=== PATIENT | male | born 1950 | race Caucasian/White ===

== ENCOUNTER 2019-11-15 19:14 | Inpatient (IN) | payer MEDICARE ==
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
[2019-11-15] MEDS ORDERED: SODIUM CHLORIDE 0.9% 1,000 ML IV STA ×2 (19:53)
[2019-11-15] MEDS ORDERED: SODIUM CHLORIDE 0.9% 500 ML 500 ML IV STA (19:53)
[2019-11-15 20:15] LABS: Basophils # (A) 0.2 k/uL (0-0.2); Basophils % (A) 2 %; Eosinophils # (A) 0.1 k/uL (0-0.7); Eosinophils % (A) 2 %; HCT 49.9 % (39.0-53.0); HGB 16.9 gm/dL (13.0-17.5); Lymphocytes # (A) 2.7 k/uL (1.0-4.8); Lymphocytes % (A) 36 %; MCH 30.1 pg (25.0-35.0); MCHC 33.9 g/dL (31.0-37.0); MCV 88.8 fL (80.0-100.0); Monocytes # (A) 0.4 k/uL (0-1.0); Monocytes % (A) 5 %; Neutrophils # (A) 3.9 k/uL (1.3-7.7); Neutrophils % (A) 52 %; Platelet Count 247 k/uL (150-450); RBC 5.61 m/uL (4.30-5.90); RDW 14.8 % (11.5-15.5); WBC 7.4 k/uL (3.8-10.6)
[2019-11-15 20:23] LABS: ALT 38 U/L (4-49); AST 51 U/L (17-59); African American GFR (CKD) >90 (>60 ml/min/1.73 sqM); Albumin 4.8 g/dL (3.5-5.0); Alkaline Phosphatase 87 U/L (38-126); Anion Gap 11 mmol/L; Blood Urea Nitrogen 14 mg/dL (9-20); Calcium 9.6 mg/dL (8.4-10.2); Carbon Dioxide 24 mmol/L (22-30); Chloride 106 mmol/L (98-107); Creatine Kinase 77 U/L (55-170); Glucose 120 mg/dL (74-99); Non-African American GFR(CKD) >90 (>60 ml/min/1.73 sqM); Partial Thromboplastin Time 23.8 sec (22.0-30.0); Potassium 4.4 mmol/L (3.5-5.1); Prothrombin Time 10.9 sec (9.0-12.0); Sodium 141 mmol/L (137-145); Total Bilirubin 0.7 mg/dL (0.2-1.3); Total Protein 9.2 g/dL (6.3-8.2)
--- NOTE | 2019-11-15 20:23 | XR ---
EXAMINATION TYPE: XR chest 2V DATE OF EXAM: 11/15/2019 COMPARISON: November 24, 2017 HISTORY: Altered mental status. TECHNIQUE: 2 views FINDINGS: Heart and mediastinum are normal. Lungs are clear of infiltrate. There are old left-sided h ealed rib fractures. There is no pleural effusion. Bony thorax is intact. IMPRESSION: No active cardiopulmonary disease. Normal heart. No change.
--- NOTE | 2019-11-15 21:24 | CT ---
EXAMINATION TYPE: CT brain wo con for TPA DATE OF EXAM: 11/15/2019 COMPARISON: 1 11/30/2017 HISTORY: Neuro deficits, vomiting, Lt side weakness. Hx multiple myeloma CT DLP: 1132.8 mGycm Automated exposure control for dose reduction was used. There is some cerebral cortical atrophy. There is no mass effect nor midline shift. There is no sign of intracranial hemorrhage. The calvarium is intact. IMPRESSION: Cerebral atrophy. No acute intracranial abnormality. No change.
--- NOTE | 2019-11-15 21:38 | CT ---
EXAMINATION TYPE: CT angio head neck DATE OF EXAM: 11/15/2019 COMPARISON: None HISTORY: Neuro deficits, vomiting, Lt side weakness. Hx multiple myeloma CT DLP: 522.9 mGycm Automated exposure control for dose reduction was used. CONTRAST: Performed with IV Contrast, patient injected with 65 mL of Isovue 370. There are 3-D post processed images. Exam was performed from the thoracic aortic arch to the vertex of the brain. There is normal branching pattern of the great vessels on the aortic arch. There is bilateral arteria l flow in the subclavian arteries. There is arterial flow in the vertebral arteries bilaterally which are fairly symmetric. There is arterial flow in the vertebrobasilar artery system. There is arterial flow in the common internal and external carotid arteries bilaterally. There is rasheeda e plaque formation at the origin right internal carotid artery and lumen narrowing 25%. There is no e vidence of carotid or vertebral artery aneurysm or dissection. There is arterial flow in the anterior middle and posterior cerebral arteries. There is no evidence o f intracranial aneurysm or neovascularity. There is no mass effect. There is normal contrast opacific ation of the venous sinuses. There is no evidence of intracranial arterial stenosis. IMPRESSION: Negative CT angiogram of the brain. Mild plaque formation at the origin right internal carotid artery. No evidence of hemodynamic stenosi s.
[2019-11-15] MEDS ORDERED: ASPIRIN 325 MG TAB PO STA (22:02)
[2019-11-15] MEDS: SODIUM CHLORIDE 0.9% 1,000 ML IV SCH (22:18)
[2019-11-16] MEDS: SODIUM CHLORIDE 0.9% 1,000 ML IV SCH ×2 (05:58→19:38)
[2019-11-16 06:18] LABS: Glucose,Whole Blood 105 mg/dL (75-99)
[2019-11-16 06:46] LABS: Cholesterol 192 mg/dL (<200); HDL Cholesterol 25 mg/dL (40-60); LDL Cholesterol,Calculated 119 mg/dL (0-99); Triglycerides 241 mg/dL (<150)
[2019-11-16] MEDS: KETOROLAC 30 MG/ML 1 ML VIAL IVP PRN (10:58)
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
[2019-11-16] MEDS ORDERED: ASPIRIN 300 MG SUPP RECTAL SCH (12:00)
[2019-11-16] MEDS: HEPARIN SODIUM,PORCINE 5,000 UNIT/ML 1 ML VIAL SQ SCH ×2 (16:04→22:49)
[2019-11-16 16:36] LABS: Glucose,Whole Blood 96 mg/dL (75-99)
[2019-11-16 18:06] VITALS: RESP 18
[2019-11-16 20:57] LABS: Glucose,Whole Blood 88 mg/dL (75-99)
[2019-11-16] MEDS ORDERED: ATORVASTATIN 40 MG TAB PO SCH (21:00)
[2019-11-16] MEDS ORDERED: ASPIRIN 325 MG TAB PO SCH (22:03)
[2019-11-17 06:26] LABS: Glucose,Whole Blood 93 mg/dL (75-99)
[2019-11-17] MEDS: SODIUM CHLORIDE 0.9% 1,000 ML IV SCH (06:37)
[2019-11-17] MEDS ORDERED: CLOPIDOGREL 75 MG TAB PO SCH (09:00)
--- NOTE | 2019-11-17 09:36 | MR ---
EXAMINATION TYPE: MR brain wo con DATE OF EXAM: 11/17/2019 COMPARISON: NONE HISTORY: Left side weakness, CVA TECHNIQUE: T1-weighted sagittal, T2, FLAIR, and diffusion axial, and T2 coronal coronal views of the brain are submitted. FINDINGS: There is small focus of abnormal signal seen on diffusion imaging within the medulla on the left harvinder uring 7 x 3 mm axial image 7 which is also seen FLAIR imaging axial image 7. There is no mass effect. Report called to patient's nurse. Moderate generalized degenerative change seen. Changes of chronic sinusitis noted. There are a few sc attered focal areas of abnormal signal within the white matter which are nonspecific but most typical remote microvascular ischemia. There is some heterogeneity to the bone marrow inner table which could be associated with the marrow occupying process. Correlate patient's history. Craniocervical junction maintained. Sella turcica has a normal appearance. Within the medial aspect o f the right temporal lobe there is a round abnormal signal which could represent areas of remote infa rct or intraparenchymal cysts appear to be compatible with CSF intensity. Small punctate areas of abn ormal signal involving the radha may been the basis of tiny areas remote ischemia. IMPRESSION: 1. Findings are suspicious for small focus of acute to subacute ischemia involving the medulla on the left measuring 3 x 7 mm. Report immediately called to patient's nurse. 2. Degenerative and nonspecific white matter changes most typical remote ischemia. 3. Calvarial heterogeneous marrow signal correlate for history of marrow occupying process
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
[2019-11-17 10:27] LABS: Hemoglobin A1C 6.6 % (4.0-6.0)
[2019-11-17] MEDS: HEPARIN SODIUM,PORCINE 5,000 UNIT/ML 1 ML VIAL SQ SCH ×2 (11:00→13:39)
[2019-11-17] MEDS: KETOROLAC 30 MG/ML 1 ML VIAL IVP PRN (11:00)
[2019-11-17 12:01] LABS: Glucose,Whole Blood 80 mg/dL (75-99)
--- NOTE | 2019-11-17 12:01 | ECHOF ---
Referral Reason:Thrombus MEASUREMENTS -------- HEIGHT: 162.6 cm WEIGHT: 90.7 kg BP: 116/56 RVIDd: 3.2 cm (< 3.3) IVSd: 1.3 cm (0.6 - 1.1) LVIDd: 5.0 cm (3.9 - 5.3) LVPWd: 1.4 cm (0.6 - 1.1) IVSs: 1.7 cm LVIDs: 3.7 cm LVPWs: 1.7 cm LA Diam: 4.5 cm (2.7 - 3.8) LAESV Index (A-L): 34.53 ml/m Ao Diam: 3.2 cm (2.0 - 3.7) AV Cusp: 1.4 cm (1.5 - 2.6) LA Diam: 3.9 cm (2.7 - 3.8) MV EXCURSION: 21.171 mm (> 18.000) MV EF SLOPE: 104 mm/s (70 - 150) EPSS: 0.4 cm MV E Brett: 0.71 m/s MV DecT: 152 ms MV A Brett: 0.88 m/s MV E/A Ratio: 0.80 RAP: 5.00 mmHg RVSP: 26.52 mmHg FINDINGS -------- Sinus rhythm. This was a technically adequate study. The left ventricular size is normal. There is mild concentric left ventricular hypertrophy. Overa ll left ventricular systolic function is low-normal with, an EF between 50 - 55 %. The right ventricle is normal in size. LA is moderately dilated 34-39 ml/m2 The right atrial size is normal. There is mild to moderate aortic valve sclerosis. There is no evidence of aortic regurgitation. The mitral valve leaflets are mildly thickened. Mild mitral regurgitation is present. Mild tricuspid regurgitation present. Right ventricular systolic pressure is normal at < 35 mmHg. The right ventricular systolic pressure, as measured by Doppler, is 26.52mmHg. There is no pulmonic regurgitation present. The aortic root size is normal. Echo free space represents a pericardial fat pad. CONCLUSIONS -------- 1. Sinus rhythm. 2. This was a technically adequate study. 3. The left ventricular size is normal. 4. There is mild concentric left ventricular hypertrophy. 5. Overall left ventricular systolic function is low-normal with, an EF between 50 - 55 %. 6. LA is moderately dilated 34-39 ml/m2 7. There is mild to moderate aortic valve sclerosis. 8. The mitral valve leaflets are mildly thickened. 9. Mild mitral regurgitation is present. 10. Mild tricuspid regurgitation present. 11. Right ventricular systolic pressure is normal at < 35 mmHg. 12. There is no pulmonic regurgitation present. 13. The aortic root size is normal. 14. Echo free space represents a pericardial fat pad. AMPHIBIAN CREWMEMBER: Monica Fleming RDCS
--- NOTE | 2019-11-17 12:03 | P.PN ---
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 Patient cannot swallow at all will need a PEG tube unfortunately because of that reason we cannot give Plavix as per the request from the gastroneurologist. Patient the does have multiple myeloma and oncology evaluated the patient. Patient has an abscess in the left side with the whole on the left jaw which it appears to be infected I'll start him on Unasyn and infectious disease will be consulted. Patient may need imaging will with a Panorex x-ray I believe. But the patient will be left to infectious disease. Constitutional: Denied any fatigue denied any fever. Cardio vascular: denied any chest pain, palpitations Gastrointestinal denied any nausea vomiting Pulmonary: Denied any shortness of breath cough Neurologic as mentioned in HPI All inpatient medications were reviewed and appropriate changes in these medications as dictated in the interval history and assessment and plan. Objective - Vital Signs Vital signs: Vital Signs Temp 96.8 F L 11/17/19 08:00 Pulse 67 11/17/19 08:00 Resp 18 11/17/19 08:00 BP 122/62 11/17/19 08:00 Pulse Ox 95 11/17/19 08:00 Intake & Output 11/16/19 11/17/19 11/17/19 18:59 06:59 18:59 Intake Total 0 Output Total 900 400 Balance -900 -400 0 Weight 91 kg Intake: Oral 0 Output: Urine 900 400 Other: Voiding Method Urinal Urinal Urinal # Voids 2 1 0 - Exam PHYSICAL EXAMINATION: GENERAL: The patient is alert and oriented x3, not in any acute distress. Well developed, well nourished. HEENT: Pupils are round and equally reacting to light. EOMI. No scleral icterus. No conjunctival pallor. Normocephalic, atraumatic. No pharyngeal erythema. No thyromegaly. CARDIOVASCULAR: S1 and S2 present. No murmurs, rubs, or gallops. PULMONARY: Chest is clear to auscultation, no wheezing or crackles. ABDOMEN: Soft, nontender, nondistended, normoactive bowel sounds. No palpable organomegaly. MUSCULOSKELETAL: No joint swelling or deformity. EXTREMITIES: No cyanosis, clubbing, or pedal edema. NEUROLOGICAL: Patient has strength of 4+/5 in the left upper and lower extremity smaller pupil on the right side with left-sided ptosis and in high doses in the left side of the face rest of the cranial nerve exam is within normal limits patient does have instability of gait SKIN: No rashes. - Labs CBC & Chem 7: 11/15/19 20:05 11/15/19 20:05 Labs: Abnormal Lab Results - Last 24 Hours (Table) 11/15/19 Range/Units 20:05 Hemoglobin A1c 6.6 H (4.0-6.0) % Assessment and Plan Plan: - acute ischemic stroke involving left posterior internal cerebral artery or Wallenberg syndrome and Lori's syndrome: Patient will be resumed on antiplatelet therapy after the PEG tube placement. Patient is nothing by mouth as patient failed swallow evaluation and inpatient rehabilitation services evaluated the patient. MRI didn't show Wallenberg syndrome or medial medullary syndrome the patient had a normal ejection fraction. -Possible abscess in the left lower teeth: Because of the severity of abscess and possible involvement of the jaw infectious disease will be consulted. Patient will need imaging to evaluate the bone involvement -hypertension - type 2 diabetes mellitus and patient is not on any medications for this but will need to be started on medications for diabetes most probably metformin upon discharge -hyperlipidemia: Patient was started on statin. - multiple myeloma, currently receiving chemotherapy -DVT prophylaxis with the subclavian is heparin -Continued nicotine use: Counseling was provided
[2019-11-17] MEDS: AMPICILLIN-SULBACTAM 3 GM in SODIUM CHLORIDE 0.9% 100 ML IVPB SCH ×2 (12:05→17:25)
--- NOTE | 2019-11-17 12:14 | P.PN ---
Subjective Progress Note Date: 11/17/19 Patient denies any new neurological symptoms. No significant nausea vomiting. He continues to have dysphagia. Patient was laying comfortably in the bed. States "I'm happy I'm still alive". Objective - Vital Signs Vital signs: Vital Signs Temp 96.8 F L 11/17/19 08:00 Pulse 67 11/17/19 08:00 Resp 18 11/17/19 08:00 BP 122/62 11/17/19 08:00 Pulse Ox 95 11/17/19 08:00 Intake & Output 11/16/19 11/17/19 11/17/19 18:59 06:59 18:59 Intake Total 0 Output Total 900 400 Balance -900 -400 0 Weight 91 kg Intake: Oral 0 Output: Urine 900 400 Other: Voiding Method Urinal Urinal Urinal # Voids 2 1 0 - Exam On examination patient is alert and awake in no distress. Speech is mildly hoarse. Still has left Lori's. Mild left facial droop. Muscle examination shows normal strength. Less ataxia for [id number] on the left. Sensation for fine touch is equal. 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 * Hypertension * Diabetes * Hyperlipidemia * Tobacco user * History of multiple myeloma, currently on chemotherapy Plan: * MRI of the brain showed findings suspicious for small focus of acute to subacute ischemia involving the medulla on the left measuring 3 x 7 mm. Degenerative and nonspecific white matter disease. Calvarial heterogenous marrow signal correlate for history of marrow occupying process. * CTA of head and neck showed no large vessel occlusion or stenosis. * 2-D echo showed sinus rhythm, EF 50-55%. L he is moderately dilated, mild to moderate aortic valve sclerosis, mitral valve leaflets are mildly thickened. * Patient is ALLERGY to aspirin. Plavix was recommended but patient has dysphagia, cannot swallow. Suggest placement of NG tube so patient can take Plavix. * PT OT, speech therapy. * Continue telemetric monitoring rule out arrhythmia. * Blood pressure is well controlled. * Hemoglobin A1c 6.6. * Continue Lipitor 40 mg daily for hyperlipidemia, when patient able to take by mouth. * We will follow up.
[2019-11-17] MEDS ORDERED: LACTATED RINGERS 1,000 ML IV SCH (13:00)
--- NOTE | 2019-11-17 15:12 | CONS ---
CONSULTATION DATE OF DICTATION: 11/17/2019 REASON FOR CONSULTATION: Oropharyngeal dysphagia for PEG tube placement. HISTORY OF PRESENT ILLNESS: The patient is a 69-year-old pleasant white male with history of TIA with prior history of stroke, was admitted to the hospital with left-sided weakness and imbalance that started 2 days ago. Subsequently, he had a CT of the head done and diagnosed with CVA. The patient has been having severe difficulty swallowing since admission to the hospital. He failed bedside swallow evaluation. Hence we are consulted for an EGD with a PEG tube placement. PAST MEDICAL HISTORY: Significant for atrial fibrillation, recent CVA/stroke with left-sided hemiparesis, diabetes mellitus, hypertension, hyperlipidemia, COPD. MEDICATIONS: At home, [place], Plavix Lipitor. SOCIAL HISTORY: No smoking. No alcohol use. PAST SURGICAL HISTORY: Skin cancer for which he underwent surgery, multiple myeloma diagnosed in 2012. Follows at [facility] in [place], undergoing chemotherapy. FAMILY HISTORY: Father had leukemia and sister had lung cancer. REVIEW OF SYSTEMS: CARDIOPULMONARY: He denies any chest pain, shortness of breath. : No dysuria or hematuria. MUSCULOSKELETAL: Unremarkable. SKIN: Unremarkable. NEUROLOGY: Recent stroke. PSYCHIATRIC: Unremarkable. CONSTITUTIONAL: No recent weight loss. No fever, chills, night sweats. PHYSICAL EXAMINATION: He appears comfortable, in no apparent distress. VITAL SIGNS: Stable. Blood pressure 122/62, pulse is 67, temperature 96.8. HEENT: Examination unremarkable, conjunctivae are pink. Sclerae nonicteric, oral cavity no lesions. NECK: No JVD or lymph node enlargement. CHEST: Clear to auscultation. HEART: Regular rate and rhythm. ABDOMEN: Soft, it was nontender, nondistended. Bowel sounds are positive. No organomegaly. EXTREMITIES: No pedal edema. NEURO: Alert and oriented x3. Right-sided hemiparesis. LABS: Show WBC 7.4, hemoglobin 16.9, platelets normal. PT, INR is within normal limits. IMPRESSION: 1. Oropharyngeal dysphagia secondary to recent cerebrovascular accident with right- sided hemiparesis. 2. Gait disturbance secondary to stroke. 3. History of atrial fibrillation, currently on no anticoagulation. 4. History of cerebrovascular accident in the past. Patient was on Plavix. The last dose was about 3 days ago. RECOMMENDATIONS: Will proceed with an upper endoscopy with a PEG tube placement tomorrow for oropharyngeal dysphagia. Discussed with the patient risks, benefits, and complications of the procedure and agreeable to it. In the meantime, continue to hold off on aspirin and Plavix. Thank you for this consultation. TORSTEN / IJN: [id number] /
[2019-11-17 17:08] LABS: Glucose,Whole Blood 82 mg/dL (75-99)
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
[2019-11-17 21:06] VITALS: BP 129/62; PULSE 65; TEMP 97.8
--- NOTE | 2019-11-17 23:44 | CONS ---
CONSULTATION DATE OF SERVICE: 11/17/2019. TIME OF EVALUATION: 5 p.m. REASON FOR CONSULTATION: Dental abscess. HISTORY OF PRESENT ILLNESS: The patient is a 69-year-old male who presented to the ER at [facility] on November 15, 2019, with the chief complaints of left-sided facial droop, dysphagia, unable to swallow or eat or drink at all, with left-sided weakness and left leg weakness and ataxia. With these symptoms, the patient has been admitted to hospital and the patient did have a stroke workup and has been evaluated by the neurology service. An MRI of the brain was completed this morning which did show suspicion of small focus of acute/subacute ischemia involving the medulla on the left measuring 3.3 x 7 mm. The patient also gave a history of left lower jaw tooth extraction with sinus draining from the lower mandible area and apparently has been treated in the outpatient setting by his dentist with oral antibiotics. However, the patient is not sure about the name of those antibiotics. I was asked to see the patient regarding his dental abscess and need for further workup and antibiotic therapy. The patient denies having any fever or any chills. However, he has been complaining of pain to the low jaw area, more of a dull aching pain, 4 to 5 out of 10, and no radiation. No further drainage has been noted from the lower jaw site. REVIEW OF SYSTEMS: Positive points have been mentioned in the HPI. Rest of the systems have been negative. PAST MEDICAL HISTORY: 1. Atrial fibrillation. 2. COPD. 3. CVA/TIA. 4. Diabetes mellitus. 5. Hyperlipidemia. 6. Hypertension. 7. Multiple myeloma. PAST SURGICAL HISTORY: 1. Excision of skin cancer from the left leg. 2. Tumor removed from the abdominal area. 3. Colonoscopy. 4. Dental extraction. SOCIAL HISTORY: The patient is currently an everyday smoker. He has been smoking since 1970. Denies drinking or drug use. FAMILY HISTORY: Father with history of leukemia. Sister with history of lung cancer and pelvic cancer. ALLERGIES: ASPIRIN. MEDICATIONS: The patient is currently on: 1. Unasyn 3 grams q.6 hours. 2. Lipitor. 3. Plavix. 4. Heparin. 5. Toradol. 6. Lactated Ringer's. 7. IV fluid. PHYSICAL EXAMINATION: Blood pressure 129/62 with a pulse of 55, temperature 97.8. He is 96% on room air. General description is an elderly male up in the chair in no distress. No tachypnea or accessory muscle of respiration use. HEENT examination shows no pallor or scleral icterus. Oral mucous membrane is dry. The patient did have poor dentition with left lower jaw no teeth. Did have an ulcer at the base of the gum line with some yellow slough. NECK: Trachea is central. No thyromegaly. LUNGS: Unlabored breathing. Clear to auscultation anteriorly. No wheeze or crackle. HEART: S1, S2. Regular rate and rhythm. ABDOMEN: Soft. No tenderness. No guarding or rigidity. EXTREMITIES: No edema of the feet. SKIN EXAMINATION: No rash or mass palpable. NEUROLOGICAL: The patient is awake, alert, oriented x3. Mood and affect normal. LABS: Hemoglobin 16.9, white count 7.4 with a BUN of 14, creatinine 0.78. Electrolytes have been normal. No culture this admission. DIAGNOSTIC IMPRESSION AND PLAN: Patient with left lower jaw dental extraction in this patient who gives a history of sinus drainage from the with concern for possible lower jaw osteomyelitis; and abscess seemed to be ruled out. Likely from the oral puneet. PLAN: 1. We will obtain x-rays of the mandible area which did show some . May obtain a CT of the mandible and jaw area. 2. Unasyn 3 grams q.6 hours. 3. Further workup on the basis of the initial investigation. Thank you for this consultation. Will follow this patient along with you. MMODL / IJN: [id number] /
[2019-11-18] MEDS ORDERED: PROPOFOL 10 MG/ML 20 ML VIAL IV ONE (07:06)
[2019-11-18] MEDS ORDERED: IV FLUID CONTINUATION 1,000 ML IV ONE (07:11)
[2019-11-19 09:55] LABS: Free Kappa Lt Chain Qnt, Serum 4.55 mg/dL (0.33-1.94)
[2019-11-20 13:00] LABS: Albumin 3.66 g/dL (3.80-4.90); Gamma Globulin 1.62 g/dL (0.70-1.50)
== END 2019-11-17 21:49 | disposition left against medical advice (07) | DRG 65 ==
LOC: EC 19:14 → 3SCARD 22:02
PROVIDERS: ADMIT Hospitalist; ATTEND Hospitalist
DX: I63.9 Cerebral infarction, unspecified (principal); G81.91 Hemiplegia, unspecified affecting right dominant side; C90.00 Multiple myeloma not having achieved remission; I65.21 Occlusion and stenosis of right carotid artery; G90.2 Horner's syndrome; G46.3 Brain stem stroke syndrome; R13.12 Dysphagia, oropharyngeal phase; R29.709 NIHSS score 9; I10 Essential (primary) hypertension; I48.91 Unspecified atrial fibrillation; E11.9 Type 2 diabetes mellitus without complications; E78.5 Hyperlipidemia, unspecified; F17.210 Nicotine dependence, cigarettes, uncomplicated; J44.9 Chronic obstructive pulmonary disease, unspecified; R26.9 Unspecified abnormalities of gait and mobility; M27.2 Inflammatory conditions of jaws; Z79.02 Long term (current) use of antithrombotics/antiplatelets; Z79.84 Long term (current) use of oral hypoglycemic drugs; Z79.899 Other long term (current) drug therapy; Z79.52 Long term (current) use of systemic steroids; Z85.828 Personal history of other malignant neoplasm of skin; Z86.73 Personal history of transient ischemic attack (TIA), and cerebral infarction without residual deficits; Z88.6 Allergy status to analgesic agent; Z71.6 Tobacco abuse counseling; Z80.1 Family history of malignant neoplasm of trachea, bronchus and lung; Z80.6 Family history of leukemia; Z80.8 Family history of malignant neoplasm of other organs or systems
CPT/HCPCS: 36415; 43246; 70450; 70496; 70498; 70551; 71046; 80053; 80061; 82550; 83036; 83883; 84165; 84484; 85025; 85610; 85730; 86334; 93005; 93306; 96360; 96361; 99291

== ENCOUNTER 2019-11-17 21:47 | Inpatient (IN) | payer MEDICARE ==
[2019-11-17] MEDS ORDERED: NALOXONE 0.4 MG/ML 1 ML VIAL IV PRN (22:11)
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
[2019-11-17] MEDS: SODIUM CHLORIDE 0.9% 1,000 ML IV SCH (22:42)
[2019-11-18 06:13] LABS: Glucose,Whole Blood 78 mg/dL (75-99)
[2019-11-18] MEDS: INSULIN ASPART (NovoLOG) 100 UNIT/ML VIAL SQ SCH ×4 (06:24→20:47)
--- NOTE | 2019-11-18 07:43 | P.PCN ---
Date of Procedure: 11/18/19 Procedure(s) Performed: Brief history: Patient is a 69-year-old pleasant white male was admitted to hospital with CVA and oropharyngeal dysphagia as well as left-sided hemiparesis. He is not able to swallow anything for the last 3 days. He is hence scheduled for an EGD with PEG tube placement today. Procedure performed: EGD with PEG tube placement Preoperative diagnosis: Oropharyngeal dysphagia from recent CVA IV sedation by anesthesia Procedure: After informed consent was obtained with the patient as well as the family the patient was brought into the endoscopy unit. IV conscious sedation was administered by anesthesia under continuous monitoring. The Olympus GF 160 video endoscope was inserted into the mouth and esophagus intubated without any difficulty and was gradually advanced to the stomach and duodenum. The bulb and second part of the duodenum was visualized which showed superficial ulcerations with no active bleeding. The scope at this time was withdrawn to the stomach adequately insufflated with air. Adequate transillumination was achieved onto the anterior abdominal wall. At the site of adequate transillumination and maximal finger indentation, on the anterior abdominal wall, this area was sterilely prepped and draped. One percent Xylocaine was infiltrated into the skin and a small incision was made. Trocar and cannula was passed through the incision into the stomach cavity. The trocar was removed. Guidewire was passed through the cannula into the stomach cavity which was held by the snare that was passed through the scope. The guidewire along with the scope was gently withdrawn from the stomach esophagus out of the mouth. A 20-[place] [employer] PEG tube was passed over the guidewire and was gently advanced into the mouth and esophagus and stomach. With gentle traction the guidewire along with the PEG tube was pulled from the anterior abdominal wall until the internal bumper appeared to be in secure position. Repeat EGD was performed and the esophagus intubated without any difficulty and was advanced into the stomach. The internal bumper appeared to be in secure position. The visualized portions of the antrum body cardia and fundus of the stomach appeared normal. The esophagus was carefully examined as the scope was gradually being withdrawn which appeared normal. At this time external bumper was placed on the PEG tube closer to the anterior abdominal wall at 3 cm kitty. The patient tolerated the procedure well. Impression: Successful 20-[place] [employer] PEG tube placement as described above. Small superficial duodenal ulcers. Recommendations: Findings of this examination were discussed with the patient's family. The patient will be started on tube feeds later today. Post-PEG tube orders were written.
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
[2019-11-18 12:10] LABS: Glucose,Whole Blood 83 mg/dL (75-99)
--- NOTE | 2019-11-18 12:17 | P.DS ---
Providers Date of admission: 11/17/19 22:11 Attending physician: Alessia Bruon Consults: 11/17/19 22:11 Consult Physician Routine Consulting Provider: Nargis Manley Consult Reason/Comments: CVA Do you want consulting provider notified?: Yes, Notify in am 11/17/19 22:12 Consult Physician Routine Consulting Provider: Leann Collazo Consult Reason/Comments: EGD with PEG Do you want consulting provider notified?: Yes, Notify in am 11/18/19 10:06 Consult Physician Routine Consulting Provider: Rc Eugene Consult Reason/Comments: ipr Do you want consulting provider notified?: Yes 11/18/19 10:17 Consult Physician Routine Consulting Provider: Fam Elena Consult Reason/Comments: pt known to you Do you want consulting provider notified?: Already Contacted 11/18/19 10:18 Consult Physician Routine Consulting Provider: Lea Brown Consult Reason/Comments: dental abscess Do you want consulting provider notified?: Yes Primary care physician: Dayron Reilly DO Hospital Course: Patient will be discharged to [facility] patient to have please refer to my H&P for further details. Patient Condition at Discharge: Serious Plan - Discharge Summary Discharge Rx Participant: No New Discharge Prescriptions: New Amoxic-Pot Clav 875-125Mg [Augmentin 875-125] 1 tab PO Q12HR #14 tablet Atorvastatin [Lipitor] 40 mg PO HS #30 tablet Clopidogrel Bisulfate [Plavix] 75 mg PO DAILY #30 tab metFORMIN HCL [Glucophage] 500 mg PO BID #30 tab Continue HYDROcodone/APAP 10-325MG [[place] 10-325] 1 tab PO Q6HR PRN PRN Reason: Pain Discharge Medication List HYDROcodone/APAP 10-325MG [[place] 10-325] 1 tab PO Q6HR PRN 11/15/19 [History] Amoxic-Pot Clav 875-125Mg [Augmentin 875-125] 1 tab PO Q12HR #14 tablet 11/18/19 [Rx] Atorvastatin [Lipitor] 40 mg PO HS #30 tablet 11/18/19 [Rx] Clopidogrel Bisulfate [Plavix] 75 mg PO DAILY #30 tab 11/18/19 [Rx] metFORMIN HCL [Glucophage] 500 mg PO BID #30 tab 11/18/19 [Rx] Follow up Appointment(s)/Referral(s): Fam Elena MD [STAFF PHYSICIAN] - 1-2 Days Golden Sheppard MD [Medical Doctor] - 1-2 Days Lea Brown MD [STAFF PHYSICIAN] - 1-2 Days Discharge Disposition: OTHER INSTITUTION NOT DEFINED
[2019-11-18] MEDS: ACETAMINOPHEN IV (For NPO) 1,000 MG in EMPTY BAG 1 BAG IVPB PRN (12:56)
[2019-11-18] MEDS: SODIUM CHLORIDE 0.9% 1,000 ML IV SCH ×2 (13:04→20:19)
[2019-11-18 13:09] VITALS: BMI 28.0
--- NOTE | 2019-11-18 14:21 | CONS ---
CONSULTATION DATE OF SERVICE: 11/18/2019 REASON FOR CONSULTATION: Dental abscess. HISTORY OF PRESENT ILLNESS: The patient is a 69-year-old, male who presented to the hospital with left- sided facial droop and dysphagia, unable to swallow or drink in the patient who had been diagnosed with acute CVA. The patient also has history of left lower jaw dental infection and concern for possible draining sinus for which ID was consulted. I saw the patient yesterday. X-rays of the lower jaw was ordered. Apparently the patient ended up signing AMA as he goes outside the hospital to smoke. After smoking, the patient presented back to the hospital within an hour and subsequently has been readmitted and ID was re-consulted for re-evaluation of his lower jaw abscess and concern for possible osteomyelitis. The patient had been complaining of pain to the lower jaw area but no worsening or any improvement. Denies any difficulty or swelling or any drainage from it. No fever. No chills. No nausea, vomiting. No abdominal pain. No diarrhea. REVIEW OF SYSTEMS: Positive points have been mentioned in HPI. Rest of systems negative. PAST MEDICAL SURGICAL HISTORY: No change from yesterday. SOCIAL HISTORY: No change from yesterday. FAMILY HISTORY: Reviewed, no change from yesterday. ALLERGIES: Allergies to ASPIRIN. MEDICATIONS: Medications include the patient is currently on Unasyn 3 grams q.6 hours, Plavix, NovoLog, Narcan, and Tylenol. PHYSICAL EXAMINATION: On examination, blood pressure is 149/70 with a pulse of 60, temperature 98.9. He is 95% on room air. General description is an elderly male up in the chair in no distress. HEENT EXAMINATION: No pallor or scleral icterus. Left lower jaw reveals the wound post extraction, some slough tissue. LUNGS: Unlabored breathing, clear to auscultation. HEART S1, S2. Regular rate and rhythm. ABDOMEN: Soft, no tenderness. EXTREMITIES: No edema of the feet. LABS: No new labs have been obtained today. DIAGNOSTIC IMPRESSION AND PLAN: Patient with left lower jaw tooth infection with concern for draining sinus and osteomyelitis, though the did not have any fever or elevated white count that will any deep infection, though not entirely excluded. PLAN: 1. We will start with x-rays of the mandible area. If no abnormality, a CT should be done. 2. Unasyn 3 grams q.6 hours. 3. Will follow on clinical condition and investigations to further adjust the medication if needed. Thank you for this consultation. Will follow this patient along with you. MMVICKEYL / IJN: [id number] /
[2019-11-18 16:09] VITALS: RESP 16
[2019-11-18] MEDS: CLOPIDOGREL 75 MG TAB PO SCH (16:21)
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
[2019-11-18 16:38] LABS: Glucose,Whole Blood 78 mg/dL (75-99)
[2019-11-18] MEDS ORDERED: ATORVASTATIN 40 MG TAB PO SCH (16:45)
[2019-11-18] MEDS: AMPICILLIN-SULBACTAM 3 GM in SODIUM CHLORIDE 0.9% 100 ML IVPB SCH ×2 (16:45→22:59)
[2019-11-18 19:35] LABS: African American GFR (CKD) >90 (>60 ml/min/1.73 sqM); Anion Gap 8 mmol/L; Blood Urea Nitrogen 11 mg/dL (9-20); Calcium 8.2 mg/dL (8.4-10.2); Carbon Dioxide 19 mmol/L (22-30); Chloride 115 mmol/L (98-107); Glucose 76 mg/dL (74-99); Non-African American GFR(CKD) >90 (>60 ml/min/1.73 sqM); Potassium 3.8 mmol/L (3.5-5.1); Sodium 142 mmol/L (137-145)
[2019-11-18 20:46] LABS: Glucose,Whole Blood 83 mg/dL (75-99)
--- NOTE | 2019-11-18 21:03 | CT ---
EXAMINATION TYPE: CT facial bones w con DATE OF EXAM: 11/18/2019 COMPARISON: None HISTORY: osteomyelitis of the mandible CT DLP: 591.8 mGycm Automated exposure control for dose reduction was used. CONTRAST: Performed with IV Contrast, patient injected with 100 mL of Isovue 300. Multiple axial sections were obtained from the level of the hyoid bone to the top of the frontal sinu ses with intravenous contrast. There is a 3 cm segment of left anterior hemimandible with patchy bone destruction. There is mild ant erior soft tissue swelling. The temporomandibular joints are intact. Zygomatic arches appear normal. There is fairly normal aeration of the maxillary sinuses. Frontal ethmoid and sphenoid sinuses appear normal. The maxilla is intact. There are multiple missing teeth. I see no pathologic fluid collectio n. Submandibular salivary glands are symmetric. Parotid glands are symmetric. IMPRESSION: Large area of destructive change in the left anterior mandible consistent with osteomyelitis. There i s central calcification that could be a sequestrum. There is fracture at the site. No displacement.
[2019-11-19] MEDS: ACETAMINOPHEN IV (For NPO) 1,000 MG in EMPTY BAG 1 BAG IVPB PRN (04:59)
[2019-11-19] MEDS: SODIUM CHLORIDE 0.9% 1,000 ML IV SCH ×2 (05:00→09:04)
[2019-11-19] MEDS: AMPICILLIN-SULBACTAM 3 GM in SODIUM CHLORIDE 0.9% 100 ML IVPB SCH (06:06)
[2019-11-19 06:24] LABS: Glucose,Whole Blood 82 mg/dL (75-99)
[2019-11-19] MEDS: INSULIN ASPART (NovoLOG) 100 UNIT/ML VIAL SQ SCH (06:31)
[2019-11-19 06:57] LABS: HCT 43.5 % (39.0-53.0); HGB 14.3 gm/dL (13.0-17.5); MCH 29.5 pg (25.0-35.0); MCHC 32.9 g/dL (31.0-37.0); MCV 89.7 fL (80.0-100.0); Mean Platelet Volume 7.3; Platelet Count 260 k/uL (150-450); RBC 4.85 m/uL (4.30-5.90); RDW 14.8 % (11.5-15.5); WBC 7.9 k/uL (3.8-10.6)
[2019-11-19 07:12] LABS: African American GFR (CKD) >90 (>60 ml/min/1.73 sqM); Anion Gap 10 mmol/L; Blood Urea Nitrogen 10 mg/dL (9-20); Calcium 8.6 mg/dL (8.4-10.2); Carbon Dioxide 21 mmol/L (22-30); Chloride 110 mmol/L (98-107); Glucose 72 mg/dL (74-99); Non-African American GFR(CKD) >90 (>60 ml/min/1.73 sqM); Sodium 141 mmol/L (137-145)
[2019-11-19] MEDS: CLOPIDOGREL 75 MG TAB PO SCH (08:58)
[2019-11-19] MEDS ORDERED: HYDROcodone/APAP 10-325MG 1 EACH TAB PO PRN (10:24)
[2019-11-19] MEDS ORDERED: ALPRAZolam 0.5 MG TAB PO PRN (10:25)
[2019-11-19] MEDS ORDERED: GABAPENTIN 100 MG CAP PO SCH (10:30)
[2019-11-19 12:00] VITALS: BP 137/73; PULSE 62; TEMP 98.3
[2019-11-19 12:16] LABS: Glucose,Whole Blood 91 mg/dL (75-99)
--- NOTE | 2019-11-19 15:15 | P.DS ---
Providers Date of admission: 11/17/19 22:11 Attending physician: Alessia Bruno Consults: 11/17/19 22:11 Consult Physician Routine Consulting Provider: Nargis Manley Consult Reason/Comments: CVA Do you want consulting provider notified?: Yes, Notify in am 11/17/19 22:12 Consult Physician Routine Consulting Provider: Leann Collazo Consult Reason/Comments: EGD with PEG Do you want consulting provider notified?: Yes, Notify in am 11/18/19 10:06 Consult Physician Routine Consulting Provider: Rc Eugene Consult Reason/Comments: ipr Do you want consulting provider notified?: Yes 11/18/19 10:17 Consult Physician Routine Consulting Provider: Fam Elena Consult Reason/Comments: pt known to you Do you want consulting provider notified?: Already Contacted 11/18/19 10:18 Consult Physician Routine Consulting Provider: Lea Brown Consult Reason/Comments: dental abscess Do you want consulting provider notified?: Yes Primary care physician: Dayron Reilly DO Hospital Course: please note that this is not a discharge summary because patient signed leaving AMA This is a pleasant 69 years old male with past medical history of atrial fibrillation, COPD, CVA/TIA, diabetes mellitus, hypertension, hyperlipidemia., Multiple myeloma on chemotherapy and bone cancer. 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 And returned to the hospital yesterday again which has been evaluated by neurologist and internal medicine doctor.patient was found to have dysphagia secondary to his stroke and PEG tube tube was placed also he has mild ataxia and walking difficulty. However he is fully awake and oriented. The plan for him as to go for rehab get more strength. However I was called by the nurse this morning that the patient wants to leave AMA I went to the room and examined the patient and talk to him. I have extensive discussion with the patient about his medical conditions and the need for hospitalization. Part of my explanation I told him about his diagnosis of stroke, dysphagia and difficulty swallowing, and his gait problem and that recommended that he stays in the hospital and go to rehab on Thursday to continue his therapy. Risks of leaving name A are explained for the patient including recurrent stroke, more weakness and nerve damage, loss of organ dysfunction, arrhythmia, aspiration and pneumonia, respiratory failure, need for mechanical ventilation which could be irreversible, organ dysfunction, and/or . Patient verbalized understanding. Patient told me he wanted to leave AMA because he wanted to smoke cigarettes. Besides explaining the risk for smoking for him I encouraged him to stay in the hospital that going to give him medicine to calm him down and he agrees.in the meantime his son called him and urged him to stay. He agrees to start on Xanax, Neurontin and Solomon as needed which was taken at home. However after taking these 3 medicines, I was informed by the floor nurse that the patient has already left AMA. As per staff Was Coming to the Floor When He signed the AMA. during my evaluation patient was alertAwake and oriented to time, as he knows he is in the hospital and which hospital. He is oriented to time also as he knows the date and person and he knew the name of the president. Also he knows his me dical illness and why he is in the hospital. He was able to make logic conversation and shows understanding and at times he told me back the risks Based upon my evaluation patient has capacity to make medical decision Physical exam prior to leaving AMA Gen: patient is a AAOx3, no distress CVS: S1-S2, RRR, no murmur Lungs: B/L CTA, no wheezing -Abdomen: soft, no distention, no tenderness, positive bowel sounds. PEG tube is in place Extremity: no leg edema or induration -Neurological: Mild slurred speech, facial deviation. Mild ataxia. Time spent more than 35 minutes Patient Condition at Discharge: Serious Plan - Discharge Summary Discharge Rx Participant: No New Discharge Prescriptions: New Amoxic-Pot Clav 875-125Mg [Augmentin 875-125] 1 tab PO Q12HR #14 tablet Atorvastatin [Lipitor] 40 mg PO HS #30 tablet Clopidogrel Bisulfate [Plavix] 75 mg PO DAILY #30 tab metFORMIN HCL [Glucophage] 500 mg PO BID #30 tab Continue HYDROcodone/APAP 10-325MG [Solomon 10-325] 1 tab PO Q6HR PRN PRN Reason: Pain Discharge Medication List HYDROcodone/APAP 10-325MG [Solomon 10-325] 1 tab PO Q6HR PRN 11/15/19 [History] Amoxic-Pot Clav 875-125Mg [Augmentin 875-125] 1 tab PO Q12HR #14 tablet 11/18/19 [Rx] Atorvastatin [Lipitor] 40 mg PO HS #30 tablet 11/18/19 [Rx] Clopidogrel Bisulfate [Plavix] 75 mg PO DAILY #30 tab 11/18/19 [Rx] metFORMIN HCL [Glucophage] 500 mg PO BID #30 tab 11/18/19 [Rx] Follow up Appointment(s)/Referral(s): Fam Elena MD [STAFF PHYSICIAN] - 1-2 Days Golden Sheppard MD [Medical Doctor] - 1-2 Days Lea Brown MD [STAFF PHYSICIAN] - 1-2 Days Patient Instructions/Handouts: Ischemic Stroke (DC) Discharge Disposition: Left Against Medical Advice
[2019-11-19] MEDS ORDERED: ATORVASTATIN 40 MG TAB PO SCH (21:00)
== END 2019-11-19 12:37 | disposition left against medical advice (07) | DRG 65 ==
LOC: EC 21:47 → 3SCARD 22:11
PROVIDERS: ADMIT Hospitalist; ATTEND Hospitalist
PROC: 0DH63UZ Insertion of Feeding Device into Stomach, Percutaneous Approach (ICD-10-PCS; principal; 2019-11-18 07:00)
DX: I63.9 Cerebral infarction, unspecified (principal); C90.00 Multiple myeloma not having achieved remission; G81.94 Hemiplegia, unspecified affecting left nondominant side; G90.2 Horner's syndrome; R13.12 Dysphagia, oropharyngeal phase; K26.9 Duodenal ulcer, unspecified as acute or chronic, without hemorrhage or perforation; E11.9 Type 2 diabetes mellitus without complications; E78.5 Hyperlipidemia, unspecified; F17.210 Nicotine dependence, cigarettes, uncomplicated; I10 Essential (primary) hypertension; I48.91 Unspecified atrial fibrillation; J44.9 Chronic obstructive pulmonary disease, unspecified; G46.3 Brain stem stroke syndrome; M27.2 Inflammatory conditions of jaws; R29.810 Facial weakness; R27.0 Ataxia, unspecified; H02.409 Unspecified ptosis of unspecified eyelid; Z79.84 Long term (current) use of oral hypoglycemic drugs; Z79.899 Other long term (current) drug therapy; Z85.828 Personal history of other malignant neoplasm of skin; Z88.6 Allergy status to analgesic agent; Z80.1 Family history of malignant neoplasm of trachea, bronchus and lung; Z80.6 Family history of leukemia; Z80.8 Family history of malignant neoplasm of other organs or systems
CPT/HCPCS: 43246; 70487; 80048; 85027; 99284

== ENCOUNTER 2019-11-19 14:30 | Inpatient (IN) | payer MEDICARE ==
[2019-11-19] MEDS ORDERED: NALOXONE 0.4 MG/ML 1 ML VIAL IV PRN (15:05)
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
[2019-11-19 16:57] LABS: Glucose,Whole Blood 85 mg/dL (75-99)
[2019-11-19 20:53] LABS: Glucose,Whole Blood 73 mg/dL (75-99)
[2019-11-19] MEDS: INSULIN ASPART (NovoLOG) 100 UNIT/ML VIAL SQ SCH (21:14)
[2019-11-19] MEDS: DEXTROSE 5% IN WATER 1,000 ML IV SCH (21:14)
[2019-11-19 22:26] LABS: Glucose,Whole Blood 79 mg/dL (75-99)
[2019-11-20 00:35] LABS: Glucose,Whole Blood 87 mg/dL (75-99)
[2019-11-20 03:36] LABS: Glucose,Whole Blood 92 mg/dL (75-99)
[2019-11-20 06:04] LABS: Glucose,Whole Blood 89 mg/dL (75-99)
[2019-11-20 06:48] LABS: Glucose,Whole Blood 86 mg/dL (75-99)
[2019-11-20] MEDS: INSULIN ASPART (NovoLOG) 100 UNIT/ML VIAL SQ SCH ×4 (07:17→22:16)
[2019-11-20] MEDS: DEXTROSE 5% IN WATER 1,000 ML IV SCH (11:03)
[2019-11-20 11:47] LABS: Glucose,Whole Blood 107 mg/dL (75-99)
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
[2019-11-20] MEDS ORDERED: AMPICILLIN-SULBACTAM 3 GM in SODIUM CHLORIDE 0.9% 100 ML IVPB SCH (16:00)
[2019-11-20 16:58] LABS: Glucose,Whole Blood 122 mg/dL (75-99)
[2019-11-20 20:26] LABS: Glucose,Whole Blood 106 mg/dL (75-99)
[2019-11-20] MEDS: ATORVASTATIN 40 MG TAB PO SCH (21:11)
[2019-11-20] MEDS: HYDROcodone/APAP 7.5-325MG 1 EACH TAB PO PRN (21:11)
[2019-11-21] MEDS: DEXTROSE 5% IN WATER 1,000 ML IV SCH ×2 (01:18→11:34)
[2019-11-21] MEDS: AMPICILLIN-SULBACTAM 3 GM in SODIUM CHLORIDE 0.9% 100 ML IVPB SCH ×4 (01:19→17:32)
[2019-11-21] MEDS: HYDROcodone/APAP 7.5-325MG 1 EACH TAB PO PRN ×3 (05:32→14:37)
--- NOTE | 2019-11-21 06:09 | CONS ---
CONSULTATION DATE OF SERVICE: 11/20/2019 REASON FOR CONSULTATION: Left lower jaw osteomyelitis. HISTORY OF PRESENT ILLNESS: The patient is a 69-year-old male who has been recently diagnosed with CVA in this patient who did have a PEG tube placement in this patient who has left against medical advice the last 2 few days twice. Patient usually signed AMA, go smoke and comes back to the ER and get re-admitted. The patient did have history of left lower jaw infected tooth that has been removed. Patient subsequently was given a history of a draining sinus from the left lower jaw. Patient did have a CT of the face obtained on November 18 which did shows large area of destructive change in the left anterior mandible consistent with osteomyelitis. The patient did have blood cultures which have been negative so far and has been with the Unasyn. I was asked to see the patient today for evaluation of re-evaluation of his left lower jaw osteomyelitis and antibiotic therapy. The patient has been complaining of some dull aching pain to the left lower jaw with intensity about 4 to 5 out of 10 and no radiation. No further drainage has been noticed. REVIEW OF SYSTEMS: Positive points have been mentioned in HPI. Other systems negative. PAST MEDICAL HISTORY: Atrial fibrillation, COPD, CVA, TIA, diabetes mellitus, hyperlipidemia, hypertension, multiple myeloma and recent CVA. PAST SURGICAL HISTORY: Excision of skin cancer right face, tumor removed from abdominal area, colonoscopy. SOCIAL HISTORY: Current everyday smoker. Denies any drinking or drug use. FAMILY HISTORY: Father with history of leukemia. ALLERGIES: Allergies to ASPIRIN. MEDICATIONS: Medications include the patient is currently on [place], Unasyn 3 grams q.8 hours, Lipitor, Plavix, NovoLog, Narcan. PHYSICAL EXAMINATION: On examination, blood pressure is 155/86, pulse of 66, temperature 98.2. He is 95% on room air. General description is an elderly male lying in bed in no distress. HEENT: Examination shows no pallor or scleral icterus. Oral mucous membranes moist. Poor dentition to the lower jaw. No draining sinus was noticed on the mandible area. NECK: Trachea central. No thyromegaly. LUNGS: Unlabored breathing, clear to auscultation anteriorly. HEART: S1, S2. Regular rate and rhythm. ABDOMEN: Soft, no tenderness. No guarding or rigidity. Extremities: No edema of feet. SKIN EXAMINATION: No rash or mass palpable. NEUROLOGIC: The patient is awake, alert, oriented x3. Mood and affect normal. LABS: No new labs been obtained today or yesterday. CT report as mentioned above. DIAGNOSTIC IMPRESSION AND PLAN: Patient with left lower jaw infected tooth subsequently developing a sinus now with evidence of destructive changes likely an osteomyelitis from his oral puneet. PLAN: 1. Recommend oral surgery evaluation for biopsy of that area, which should be sent for culture to narrow his antibiotic therapy. 2. Unasyn dose to be adjusted 3 grams q.6 hours. 3. We will obtain Sed rate and CRP. 4. Patient will need a PICC line for outpatient IV antibiotic therapy. 5. We will follow up on clinical condition and culture to further adjust medication if needed. Thank you for this consultation. Will follow this patient along with you. MMODL / IJN: [id number] /
[2019-11-21 06:56] LABS: Glucose,Whole Blood 143 mg/dL (75-99)
[2019-11-21] MEDS: INSULIN ASPART (NovoLOG) 100 UNIT/ML VIAL SQ SCH ×4 (07:39→20:34)
[2019-11-21 07:51] LABS: African American GFR (CKD) >90 (>60 ml/min/1.73 sqM); Blood Urea Nitrogen 11 mg/dL (9-20); C Reactive Protein 23.9 mg/L (<10.0); Calcium 9.1 mg/dL (8.4-10.2); Carbon Dioxide 25 mmol/L (22-30); Glucose 131 mg/dL (74-99); Non-African American GFR(CKD) >90 (>60 ml/min/1.73 sqM)
[2019-11-21 07:59] LABS: Basophils % (A) 1 %; Eosinophils # (A) 0.4 k/uL (0-0.7); Eosinophils % (A) 6 %; HCT 41.3 % (39.0-53.0); HGB 14.5 gm/dL (13.0-17.5); Lymphocytes # (A) 2.3 k/uL (1.0-4.8); Lymphocytes % (A) 38 %; MCH 30.7 pg (25.0-35.0); MCHC 35.1 g/dL (31.0-37.0); MCV 87.5 fL (80.0-100.0); Mean Platelet Volume 7.2; Monocytes # (A) 0.4 k/uL (0-1.0); Monocytes % (A) 7 %; Neutrophils # (A) 2.7 k/uL (1.3-7.7); Neutrophils % (A) 45 %; Platelet Count 250 k/uL (150-450); Poikilocytosis Slight; RBC 4.72 m/uL (4.30-5.90)
[2019-11-21 08:34] LABS: Anion Gap 10 mmol/L; Chloride 106 mmol/L (98-107); Potassium 3.3 mmol/L (3.5-5.1); Sodium 141 mmol/L (137-145)
[2019-11-21] MEDS: CLOPIDOGREL 75 MG TAB PO SCH ×2 (09:32→09:57)
[2019-11-21 10:12] LABS: Hemoglobin A1C 6.5 % (4.0-6.0)
[2019-11-21 11:35] LABS: Glucose,Whole Blood 114 mg/dL (75-99)
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
[2019-11-21] MEDS ORDERED: NICOTINE POLACRILEX 2 MG GUM BUCCAL PRN (13:12)
[2019-11-21 13:43] LABS: Erythrocyte Sedimentation Rate 20 mm/hr (0-15)
--- NOTE | 2019-11-21 14:09 | P.PN ---
Subjective This is a pleasant 69 years old male with past medical history of atrial fibrillation, COPD, CVA/TIA, diabetes mellitus, hypertension, hyperlipidemia., Multiple myeloma on chemotherapy and bone cancer. 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 And returned to the hospital 2 days again which has been evaluated by neurologist and internal medicine doctor.patient was found to have dysphagia secondary to his stroke and PEG tube tube was placed also he has mild ataxia and walking difficulty. However he is fully awake and oriented. The plan for him as to go for rehab get more strength. However I was called by the nurse this morning that the patient wants to leave AMA I went to the room and examined the patient and talk to him. I have extensive discussion with the patient about his medical conditions and the need for hospitalization. Part of my explanation I told him about his diagnosis of stroke, dysphagia and difficulty swallowing, and his gait problem and that recommended that he stays in the hospital and go to rehab on Thursday to continue his therapy. Risks of leaving name A are explained for the patient including recurrent stroke, more weakness and nerve damage, loss of organ dysfunction, arrhythmia, aspiration and pneumonia, respiratory failure, need for mechanical ventilation which could be irreversible, organ dysfunction, and/or . Patient verbalized understanding. Patient told me he wanted to leave AMA because he wanted to smoke cigarettes. Besides explaining the risk for smoking for him I encouraged him to stay in the hospital that going to give him medicine to calm him down and he agrees.in the meantime his son called him and urged him to stay. He agrees to start on Xanax, Neurontin and [place] as needed which was taken at home. However after taking these 3 medicines, I was informed by the floor nurse that the patient has already left AMA. As per staff Was Coming to the Floor When He signed the AMA. during my evaluation patient was alertAwake and oriented to time, as he knows he is in the hospital and which hospital. He is oriented to time also as he knows the date and person and he knew the name of the president. Also he knows his medical illness and why he is in the hospital. He was able to make logic conversation and shows understanding and at times he told me back the risks Based upon my evaluation patient has capacity to make medical decision This time patient returns to the emergency room after his sounds cumbersome to come back. Patient has no new complaints. Is complaining of from a hole in his left jaw which is related to his infection of osteomyelitis, he has numbness in his feet which is ongoing may be related to his diabetic neuropathy, and chronic back pain 11/21/2019 Patient is with no new complaint. Patient remains on Unasyn for his possible osteomyelitis of the jaw and he might need a culture or tissue sample. Due the patient's tendency to signing AMA as he dictated twice before and he came right away to the hospital will ask for a psych consult to assess for capacity and ablative to make decision for his medical health. Discussed with staff to start nicotine gum and call psych consult. Patient might need ECF for rehab upon discharge Objective - Vital Signs Vital signs: Vital Signs Temp 98.2 F 11/21/19 07:00 Pulse 82 11/21/19 07:00 Resp 16 11/21/19 07:00 BP 158/89 11/21/19 07:00 Pulse Ox 93 L 11/21/19 07:00 Intake & Output 11/20/19 11/21/19 11/21/19 18:59 06:59 18:59 Intake Total 1590 233 Output Total 900 225 Balance -900 1365 233 Weight 90.718 kg 89.5 kg Intake: Oral 590 Tube Feeding 1000 233 Output: Urine 900 225 Other: Voiding Method Urinal Urinal # Voids 2 - Exam GENERAL: The patient is alert and oriented x3, not in any acute distress. Well developed, well nourished. -HEENT: Pupils are round and equally reacting to light. EOMI. No scleral icterus. No conjunctival pallor. Normocephalic, atraumatic. No pharyngeal erythema. No thyromegaly. CARDIOVASCULAR: S1 and S2 present. No murmurs, rubs, or gallops. he has a deep wound in the left chin inferiorly. PULMONARY: Chest is clear to auscultation, no wheezing or crackles. ABDOMEN: Soft, nontender, nondistended, normoactive bowel sounds. No palpable organomegaly. MUSCULOSKELETAL: No joint swelling or deformity. EXTREMITIES: No cyanosis, clubbing, or pedal edema. -NEUROLOGICAL: He has facial diffusion, also has mild ataxia. Sensation is intact. Rest of cranial nerves are grossly intact. Meningeal signs are absent SKIN: No rashes. No petechiae - Labs CBC & Chem 7: 11/21/19 07:15 11/21/19 07:15 Labs: Abnormal Lab Results - Last 24 Hours (Table) 11/20/19 11/20/19 11/20/19 Range/Units 07:18 16:57 20:24 ESR (0-15) mm/hr Potassium (3.5-5.1) mmol/L Glucose (74-99) mg/dL POC Glucose (mg/dL) 122 H 106 H (75-99) mg/dL Hemoglobin A1c 6.5 H (4.0-6.0) % C-Reactive Protein (<10.0) mg/L 11/21/19 11/21/19 11/21/19 Range/Units 06:54 07:15 07:15 ESR 20 H (0-15) mm/hr Potassium 3.3 L (3.5-5.1) mmol/L Glucose 131 H (74-99) mg/dL POC Glucose (mg/dL) 143 H (75-99) mg/dL Hemoglobin A1c (4.0-6.0) % C-Reactive Protein 23.9 H (<10.0) mg/L 11/21/19 Range/Units 11:33 ESR (0-15) mm/hr Potassium (3.5-5.1) mmol/L Glucose (74-99) mg/dL POC Glucose (mg/dL) 114 H (75-99) mg/dL Hemoglobin A1c (4.0-6.0) % C-Reactive Protein (<10.0) mg/L Assessment and Plan Assessment: - Recent acute ischemic stroke involving 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 Patient is nothing by mouth as patient failed swallow evaluation and inpatient rehabilitation services evaluated the patient. Neurologist evaluated patient and recommended inpatient rehab. Continue with the Plavix 75 mg and Lipitor 40 mg. -Possible abscess in the left lower teeth with osteomyelitis of the jaw: Computed tomography scan of the gel will be obtained and she'll be continued on Unasyn -hypertension -Nicotine dependence: Continue with nicotine patch, Counseling was provided -Noncompliance, patient signed leaving name A twice, patient also threatening to leave AMA tomorrow. Patient risks are explained to him again - type 2 diabetes mellitus and patient is not on any medications for this but will need to be started on medications for diabetes most probably metformin upon discharge -hyperlipidemia: Patient was started on statin. - multiple myeloma,per notes from oncologist, treatment on hold by pt Primary Onc Dr. April Delgado at [facility]. Pending myeloma work up that was ordere -DVT prophylaxis with the subclavian is heparin
--- NOTE | 2019-11-21 14:24 | P.CN ---
Psychiatric Consult - . Consult date: 11/21/19 Consult:: 11/21/19 14:09 IDENTIFYING DATA: This patient is a 69-year-old male who currently lives alone in her house has 4 sons and lives with one of his sons is currently retired. HISTORY OF PRESENT ILLNESS: The patient was brought into the emergency room by his son after sustaining a CVA 1 week ago and patient has been admitted twice since then and signed himself out AMA twice in the past week. Patient continues to have some left-sided weakness and difficulty swallowing and currently has a PEG tube in place. It has been improving in terms of his balance and gait. It was noted in the EMR the patient had left recently AMA due to wanting to smoke a cigarette. Patient was planned to go to rehab today however patient was asking again about leaving AMA. Psychiatry was consulted for altered mental status. Patient's nurse claimed that patient is to be receiving a PICC line for osteomyelitis in his jaw and patient has been more pleasant today and no behavioral problems. Patient was seen at the bedside by typewriter repairer and was able to speak. Patient was vague and concrete with his answers. Patient spoke about his stroke one week ago and how his walking is improving and balance as well. Patient claims that he "keeps giving it a try" when asked about his readmissions in the past week. Patient also complained of "not getting my questions answered about the plan" when asked about his feelings towards the doctor's orders and why he is not hospital. Patient also described it being difficult to laying in the bed due to his neuropathy. Patient did claim that he is going to stay in the hospital at this time however was not able to appropriately verbalize the risks of leaving the hospital. When typewriter repairer spoke about patient's jaw infection patient minimizes symptoms and states that "I can just go to my dentist to have it fixed". Patient is not able to weigh about the risks and benefits at this time of his treatment. He complains of feeling "depressed" for the past week stating after his stroke. He complains of poor sleep and poor appetite. At this time patient denies any suicidal or homical ideations, intent or plan. Patient denies any auditory, visual hallucinations and denies any paranoia or delusions. When asked about discharge planning patient claims that he is willing to go to rehab at this point. He claims that he smokes cigarettes daily however denies any alcohol or marijuana use or any other recreational use at this time. PAST PSYCHIATRIC HISTORY: Patient denies any outpatient psychiatric follow-up he denies ever being admitted to a psychiatric hospital and denies any previous suicide attempts.. PAST MEDICAL HISTORY: Cancer, COPD, diabetes mellitus, hyperlipidemia, hypertension, A. fib, recent stroke with left-sided weakness. ALLERGIES: as per EMR. CHEMICAL DEPENDENCY HISTORY: as per HPI. FAMILY PSYCHIATRIC/SUBSTANCE USE HISTORY: denies SOCIAL HISTORY: Patient claims that he grew up in [facility] and completed his GED and attended 1 year of college. He states that he worked in [employer] at [employer] and is currently retired collecting a pension. Patient has 4 sons and lives with one of his sons in a house. MENTAL STATUS EXAM: General Appearance: Patient appears to be older than stated age is alert, attempts to cooperate and somewhat directable. Poor hygiene and grooming. Behavior: Patient is calmly sitting on his bed without any agitated behavior. Speech: Patient's speech is fluent and nonpressured. Slowed and hesitant Mood/Affect: Patient reports their mood is "depressed", affect is congruent and constricted Suicidality/Homicidality: Patient denies having any suicidal or homicidal ideation intent or plan. Perceptions: Patient denies any auditory or visual hallucinations. Though content/process: [place] and is guarded, gives few details. Minimizes his symptoms and in addition. Memory and concentration: AOX3, Can spell "WORLD" backwards, listed 2 of the 3 past presidents. He correctly identified objects, fair fund of knowledge, fair abstraction and 2 out of 3 memory recall. Judgment and insight: Poor IMPRESSIONS: Depressive disorder unspecified, rule out due to a general medical condition Possible neurocognitive disorder PLAN: -At this time patient does NOT meet criteria for inpatient psychiatric admission. -Patient DOES NOT have decision making capacity at this time and is unable to reason through and communicate/appreciate the risks, benefits and alternatives to treatment. This is further evidenced by patient signing himself out AMA and returning 3 times in the past week. Patient also minimizes his severe infection in his jaw and cannot appreciate the necessity of antibiotics and further treatment. Patient is however agreeable to go to rehab at this current time and stay in the hospital however this opinion may change from the patient. -Delirium precautions recommended with patient including - avoiding use of narcotics and TRIMMER MACHINE OPERATOR sedatives, limit anticholinergic medications when possible, frequent re-orientation, minimize use of restraints, open window shades during the day and close them at night -Would recommend the following medication changes/additions: Added Remeron 15 mg daily at bedtime for insomnia/mood. Added melatonin 3 mg daily at bedtime for sleep. Would also recommend appropriate nicotine replacement treatment (nicorette gum vs. nicotine lozenges) -Primary team to consider further neuropsychiatric testing by TANK FILLER to rule out dementia -Continue 1:1 sitter for safety -Primary team to explain plan and patient's condition at a slower pace and answer questions patient may have about his treatment. -Cannot leave AMA at this time as patient does not have capacity to sign out AMA. If this does occur patient will need emergency guardianship -Psychiatry will sign off at this point however will be available to answer any questions as needed.
[2019-11-21] MEDS ORDERED: LIDOCAINE 1% INJ 10MG/ML (20 ML MDV) ONE (15:36)
--- NOTE | 2019-11-21 16:07 | IR ---
PICC LINE PLACEMENT: HISTORY: Infection requiring long-term antibiotic therapy PROCEDURE: Ultrasound and fluoroscopic guidance of PICC line placement. COMPLICATIONS: None ANESTHESIA: 1. 1% Lidocaine locally. FINDINGS/TECHNIQUE: The procedure was explained to the patient. The risks, complications, benefits and alternatives were discussed and any questions were answered. Informed consent was obtained. The patient was placed supine on the fluoroscopic table and prepped and draped in the usual sterile fash ion. Utilizing a 21 gauge needle and sonographic and fluoroscopic guidance, access in the left basi lic vein was achieved and there is placement of a 0.018 guidewire. The vein is patent. A 4-F sheath was placed over the guidewire. The guidewire and dilator were removed and a 4-F. PICC line was plac ed through the sheath with the tip at the level of the SVC. The sheath was removed, the catheter was flushed and sutured into position. The patient was stable throughout the procedure and remained sta ble upon discharge from the Department of Radiology. The vein puncture was patent under ultrasound. A bales scale image was obtained to document patency of the vein punctured. All elements of the maximal barrier technique were utilized. FLUOROSCOPY TIME: 0.1 minutes and one image submitted IMPRESSION: Successful PICC line placement under ultrasound and fluoroscopic guidance.
[2019-11-21 16:55] LABS: Glucose,Whole Blood 105 mg/dL (75-99)
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
[2019-11-21 20:33] LABS: Glucose,Whole Blood 116 mg/dL (75-99)
[2019-11-21] MEDS: ATORVASTATIN 40 MG TAB PO SCH (20:38)
[2019-11-21] MEDS: MIRTAZAPINE 15 MG TAB PO SCH (20:38)
[2019-11-21] MEDS: MELATONIN 3 MG TABLET PO SCH (20:38)
--- NOTE | 2019-11-21 22:38 | PN ---
PROGRESS NOTE DATE OF SERVICE: 11/21/2019. REASON FOR FOLLOWUP: Left lower jaw destructive changes likely osteomyelitis. INTERVAL HISTORY: The patient is currently afebrile. The patient has been breathing comfortably. Denies having any chest pain or cough or any worsening pain to the lower GI area. No nausea, vomiting. No diarrhea. PHYSICAL EXAMINATION: Blood pressure 129/80 with a pulse of 79, temperature 98. He is 95% on room air. General description is an elderly male up in the bed in no distress. Respiratory system: Unlabored breathing. Clear to auscultation anteriorly. HEART S1, S2. Regular rate and rhythm. ABDOMEN : Soft, no tenderness. Left lower jaw currently did have small wound on the surface, but no drainage was noticed. LABS: Hemoglobin is 14.5, white count 6.0. Sedimentation rate is 20, CRP 23.9. No cultures. DIAGNOSTIC IMPRESSION AND PLAN: Patient with left lower jaw destructive changes on the CT is this patient who did have history of poor dentition status post extraction with concern for underlying cellulitis. Patient is currently on the Unasyn will benefit from oral surgery evaluation for possible deep cultures and further antibiotic therapy. Continue supportive care. MMODL / IJN: [id number] /
[2019-11-22] MEDS: DEXTROSE 5% IN WATER 1,000 ML IV SCH ×3 (04:05→23:39)
[2019-11-22] MEDS: AMPICILLIN-SULBACTAM 3 GM in SODIUM CHLORIDE 0.9% 100 ML IVPB SCH ×7 (05:16→23:39)
[2019-11-22 06:42] LABS: Glucose,Whole Blood 103 mg/dL (75-99)
[2019-11-22] MEDS: INSULIN ASPART (NovoLOG) 100 UNIT/ML VIAL SQ SCH ×4 (07:15→21:02)
[2019-11-22] MEDS: CLOPIDOGREL 75 MG TAB PO SCH (08:42)
[2019-11-22] MEDS: HYDROcodone/APAP 7.5-325MG 1 EACH TAB PO PRN (09:20)
[2019-11-22 11:40] LABS: Glucose,Whole Blood 97 mg/dL (75-99)
--- NOTE | 2019-11-22 13:40 | P.PN ---
Subjective This is a pleasant 69 years old male with past medical history of atrial fibrillation, COPD, CVA/TIA, diabetes mellitus, hypertension, hyperlipidemia., Multiple myeloma on chemotherapy and bone cancer. 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 And returned to the hospital 2 days again which has been evaluated by neurologist and internal medicine doctor.patient was found to have dysphagia secondary to his stroke and PEG tube tube was placed also he has mild ataxia and walking difficulty. However he is fully awake and oriented. The plan for him as to go for rehab get more strength. However I was called by the nurse this morning that the patient wants to leave AMA I went to the room and examined the patient and talk to him. I have extensive discussion with the patient about his medical conditions and the need for hospitalization. Part of my explanation I told him about his diagnosis of stroke, dysphagia and difficulty swallowing, and his gait problem and that recommended that he stays in the hospital and go to rehab on Thursday to continue his therapy. Risks of leaving name A are explained for the patient including recurrent stroke, more weakness and nerve damage, loss of organ dysfunction, arrhythmia, aspiration and pneumonia, respiratory failure, need for mechanical ventilation which could be irreversible, organ dysfunction, and/or . Patient verbalized understanding. Patient told me he wanted to leave AMA because he wanted to smoke cigarettes. Besides explaining the risk for smoking for him I encouraged him to stay in the hospital that going to give him medicine to calm him down and he agrees.in the meantime his son called him and urged him to stay. He agrees to start on Xanax, Neurontin and Pound as needed which was taken at home. However after taking these 3 medicines, I was informed by the floor nurse that the patient has already left AMA. As per staff Was Coming to the Floor When He signed the AMA. during my evaluation patient was alertAwake and oriented to time, as he knows he is in the hospital and which hospital. He is oriented to time also as he knows the date and person and he knew the name of the president. Also he knows his medical illness and why he is in the hospital. He was able to make logic conversation and shows understanding and at times he told me back the risks Based upon my evaluation patient has capacity to make medical decision This time patient returns to the emergency room after his sounds cumbersome to come back. Patient has no new complaints. Is complaining of from a hole in his left jaw which is related to his infection of osteomyelitis, he has numbness in his feet which is ongoing may be related to his diabetic neuropathy, and chronic back pain 11/21/2019 Patient is with no new complaint. Patient remains on Unasyn for his possible osteomyelitis of the jaw and he might need a culture or tissue sample. Due the patient's tendency to signing AMA as he dictated twice before and he came right away to the hospital will ask for a psych consult to assess for capacity and ablative to make decision for his medical health. Discussed with staff to start nicotine gum and call psych consult. Patient might need ECF for rehab upon discharge 11/22/2019 Patient lying resting comfortably in bed, he doesn't look in distress or pain. He doesn't have specific complaint. Patient's keep asking about his plan of care although I explained to him several times however he was showing lack of ability to understand. Psychiatrist evaluated him yesterday and became incapable of making medical decisions for himself. Patient cannot leave by signing AMA. Staff at bedside are aware. As per staff patient tried to look twice. Discussed with the bedside nurse and units secretary to the vice president who contacted the administrations and stated that a sitter will be available at bedside soon. Family aware of the patient incapability to make decisions for himself as per staff Objective - Vital Signs Vital signs: Vital Signs Temp 97.2 F L 11/22/19 07:00 Pulse 72 11/22/19 07:00 Resp 16 11/22/19 07:00 BP 152/74 11/22/19 07:00 Pulse Ox 92 L 11/22/19 07:00 Intake & Output 11/21/19 11/22/19 11/22/19 18:59 06:59 18:59 Intake Total 233 Balance 233 Intake: Tube Feeding 233 Other: Voiding Method Urinal Toilet Toilet Urinal Urinal - Exam GENERAL: The patient is alert and oriented x3, not in any acute distress. Well developed, well nourished. -HEENT: Pupils are round and equally reacting to light. EOMI. No scleral icterus. No conjunctival pallor. Normocephalic, atraumatic. No pharyngeal erythema. No thyromegaly. CARDIOVASCULAR: S1 and S2 present. No murmurs, rubs, or gallops. he has a deep wound in the left chin inferiorly. PULMONARY: Chest is clear to auscultation, no wheezing or crackles. ABDOMEN: Soft, nontender, nondistended, normoactive bowel sounds. No palpable or ganomegaly. MUSCULOSKELETAL: No joint swelling or deformity. EXTREMITIES: No cyanosis, clubbing, or pedal edema. -NEUROLOGICAL: He has facial diffusion, also has mild ataxia. Sensation is intact. Rest of cranial nerves are grossly intact. Meningeal signs are absent SKIN: No rashes. 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 Patient is nothing by mouth as patient failed swallow evaluation and inpatient rehabilitation services evaluated the patient. Neurologist evaluated patient and recommended inpatient rehab. Continue with the Plavix 75 mg and Lipitor 40 mg. -Patient lacks the Ability to make medical decisions for himself. Patient cannot signed leaving AMA. Psychiatrist evaluation is appreciated. Keep sitter at bedside -Possible abscess in the left lower teeth with osteomyelitis of the jaw: Computed tomography scan of the gel will be obtained and she'll be continued on Unasyn -hypertension -Nicotine dependence: Continue with nicotine patch, Counseling was provided -Noncompliance, patient signed leaving name A twice, patient also threatening to leave AMA tomorrow. Patient risks are explained to him again - type 2 diabetes mellitus and patient is not on any medications for this but will need to be started on medications for diabetes most probably metformin upon discharge -hyperlipidemia: Patient was started on statin. - multiple myeloma,per notes from oncologist, treatment on hold by pt Primary Onc Dr. April Delgado at [facility]. Pending myeloma work up that was ordere -DVT prophylaxis with the subclavian is heparin Discussed with staff
[2019-11-22 14:49] VITALS: BMI 27.5
[2019-11-22 16:52] LABS: Glucose,Whole Blood 85 mg/dL (75-99)
--- NOTE | 2019-11-22 17:48 | PN ---
PROGRESS NOTE DATE OF SERVICE: 11/22/2019 REASON FOR FOLLOWUP: Left lower jaw osteomyelitis. INTERVAL HISTORY: The patient is currently afebrile. The patient has been breathing comfortably. The patient denies any worsening pain to the left lower jaw area. No nausea, no vomiting. No abdominal pain or diarrhea. PHYSICAL EXAMINATION: Blood pressure is 119/62 with a pulse of 66. Temperature 97.9. He is 97% on room air. General description is an elderly male lying in bed in no distress. HEENT EXAMINATION: Left lower jaw currently with no swelling, redness or any drainage. LUNGS: Unlabored breathing. Clear to auscultation anteriorly. HEART: S1, S2. Regular rate and rhythm. ABDOMEN: Soft. No tenderness. LAB: No new labs have been obtained today. DIAGNOSTIC IMPRESSION AND PLAN: Patient with left lower jaw destructive changes on the CT concerning for osteomyelitis in this patient who did have poor dentition, status post removal. The patient will benefit from biopsy of that area to confirm as well as to get the cultures. Currently covered with Unasyn. Monitor his clinical course closely. MMODL / IJN: [id number] /
[2019-11-22 20:51] LABS: Glucose,Whole Blood 88 mg/dL (75-99)
[2019-11-22] MEDS: MIRTAZAPINE 15 MG TAB PO SCH (21:39)
[2019-11-22] MEDS: MELATONIN 3 MG TABLET PO SCH (21:39)
[2019-11-22] MEDS: ATORVASTATIN 40 MG TAB PO SCH (21:39)
[2019-11-23] MEDS: AMPICILLIN-SULBACTAM 3 GM in SODIUM CHLORIDE 0.9% 100 ML IVPB SCH ×4 (05:17→23:55)
[2019-11-23] MEDS: CLOPIDOGREL 75 MG TAB PO SCH (06:52)
[2019-11-23 06:54] LABS: Glucose,Whole Blood 124 mg/dL (75-99)
[2019-11-23] MEDS: INSULIN ASPART (NovoLOG) 100 UNIT/ML VIAL SQ SCH ×4 (06:55→20:54)
[2019-11-23] MEDS ORDERED: ACETAMINOPHEN TAB 325 MG TAB PO STA (10:12)
[2019-11-23 12:11] LABS: Glucose,Whole Blood 116 mg/dL (75-99)
[2019-11-23] MEDS: DEXTROSE 5% IN WATER 1,000 ML IV SCH (14:26)
[2019-11-23 17:07] LABS: Glucose,Whole Blood 100 mg/dL (75-99)
[2019-11-23] MEDS ORDERED: ACETAMINOPHEN TAB 500 MG TAB PO PRN (19:12)
[2019-11-23] MEDS ORDERED: ALPRAZolam 0.25 MG TAB PO PRN (19:12)
[2019-11-23] MEDS: metFORMIN 500 MG TAB PO SCH (19:47)
[2019-11-23 19:55] LABS: ALT 29 U/L (4-49); AST 37 U/L (17-59); African American GFR (CKD) >90 (>60 ml/min/1.73 sqM); Albumin 3.8 g/dL (3.5-5.0); Alkaline Phosphatase 76 U/L (38-126); Anion Gap 6 mmol/L; Blood Urea Nitrogen 11 mg/dL (9-20); Carbon Dioxide 28 mmol/L (22-30); Chloride 109 mmol/L (98-107); Glucose 104 mg/dL (74-99); Non-African American GFR(CKD) >90 (>60 ml/min/1.73 sqM); Potassium 3.7 mmol/L (3.5-5.1); Sodium 143 mmol/L (137-145); Total Bilirubin 0.5 mg/dL (0.2-1.3); Total Protein 7.3 g/dL (6.3-8.2)
[2019-11-23 20:33] LABS: Glucose,Whole Blood 104 mg/dL (75-99)
[2019-11-23] MEDS: ATORVASTATIN 40 MG TAB PO SCH (21:04)
[2019-11-23] MEDS: MIRTAZAPINE 15 MG TAB PO SCH (21:04)
[2019-11-23] MEDS: MELATONIN 3 MG TABLET PO SCH (21:04)
[2019-11-23] MEDS: HEPARIN SODIUM,PORCINE 5,000 UNIT/ML 1 ML VIAL SQ SCH (21:05)
--- NOTE | 2019-11-24 01:09 | PN ---
PROGRESS NOTE DATE OF SERVICE: 11/23/2019. This 69-year-old gentleman who was admitted with features of acute ischemic stroke involving the posterior internal cerebral artery, syndrome and had Lori's syndrome. The patient also had PEG tube also. The patient is started on tube feeds. The patient also lacked ability to make decision himself. The patient also suspected to have abscess in the left lower teeth and as well as jaw also. CT scan was also noted. Dr. Brown is also following the patient closely. PT/OT is evaluating the patient. Unasyn has been noted. PAST MEDICAL HISTORY: Reviewed. REVIEW OF SYSTEMS: Could not be taken. CURRENT MEDICATIONS: 1. Garland 7.5 q.4h p.r.n. 2. Unasyn 3 grams IV q.i.d. 3. Lipitor. 4. Plavix. 5. NovoLog. 6. Melatonin. 7. Narcan. PHYSICAL EXAM: Patient is alert. The patient pulse is 58, Pressure 160/89, respiration 18, temperature 97.8, pulse ox 94% on room air. HEENT: Conjunctivae normal. NECK: No JVD. CARDIOVASCULAR: S1, S2 muffled. RESPIRATION: Breath sounds diminished in the bases. No rhonchi. No crackles. ABDOMEN: Soft, nontender. No mass. LEGS are no edema. No swelling. CENTRAL NERVOUS SYSTEM: Diffusely weak. LAB: Sodium 140, potassium 3.3 and C-reactive protein is 23.9. ASSESSMENT: 1. Left-sided weakness with acute cerebrovascular accident. 2. Dysphagia status post PEG tube placement. 3. History of noncompliance. 4. Lacks inability to make the patient's own decisions. Cannot leave AMA. 5. Left jaw osteomyelitis, possibly. 6. History of nicotine dependence. 7. History of noncompliance. 8. Diabetes type 2. 9. Hyperlipidemia. 10.Multiple myeloma, being followed by a physician, at [facility]. 11.Mild hypokalemia. 12.Elevated CRP. 13.History of chronic obstructive pulmonary disease. 14.Hyperlipidemia. 15.History of atrial fibrillation. 16.History of transient ischemic attack. 17.History of nicotine dependence continued ongoing. 18.FULL CODE. RECOMMENDATIONS AND DISCUSSION: This 69-year-old gentleman who presented with multiple complex medical issues, we will monitor the patient closely, continue the current management. Continue the broad- spectrum IV antibiotics. Continue symptomatic treatment. DVT prophylaxis. Antiplatelet agents. Closely monitor. I would also recommend a bone scan. Guarded prognosis because of multiple complex medical issues. Further recommendations to follow. Continue the PEG tube feeds and aspiration precautions head of the bed elevated to 45 degrees always. Discussed with staff. TORSTEN / GLENN: [id number] / MTDD
[2019-11-24] MEDS: HYDROcodone/APAP 7.5-325MG 1 EACH TAB PO PRN ×3 (03:26→17:48)
[2019-11-24] MEDS: AMPICILLIN-SULBACTAM 3 GM in SODIUM CHLORIDE 0.9% 100 ML IVPB SCH ×3 (06:29→17:48)
[2019-11-24 06:50] LABS: Glucose,Whole Blood 114 mg/dL (75-99)
[2019-11-24 07:13] LABS: Basophils % (A) 1 %; Eosinophils # (A) 0.3 k/uL (0-0.7); Eosinophils % (A) 5 %; HCT 40.8 % (39.0-53.0); HGB 13.9 gm/dL (13.0-17.5); Lymphocytes # (A) 2.8 k/uL (1.0-4.8); Lymphocytes % (A) 46 %; MCH 30.5 pg (25.0-35.0); MCHC 34.2 g/dL (31.0-37.0); MCV 89.2 fL (80.0-100.0); Mean Platelet Volume 7.9; Monocytes # (A) 0.4 k/uL (0-1.0); Monocytes % (A) 7 %; Neutrophils # (A) 2.3 k/uL (1.3-7.7); Neutrophils % (A) 39 %; Platelet Count 182 k/uL (150-450); Poikilocytosis Slight; RBC 4.58 m/uL (4.30-5.90); RDW 15.2 % (11.5-15.5); WBC 6.1 k/uL (3.8-10.6)
--- NOTE | 2019-11-24 07:22 | PN ---
PROGRESS NOTE DATE OF SERVICE: 11/23/2019 REASON FOR FOLLOWUP: Left jaw osteomyelitis. INTERVAL HISTORY: The patient is currently afebrile, has been breathing comfortably. Denies any worsening pain, no difficulty swallowing. No nausea, no vomiting. No abdominal pain, no diarrhea. PHYSICAL EXAMINATION: Blood pressure is 165/89 with a pulse of 68, temperature 97.8. He is 94% on room air. General description is an elderly male, lying in bed in no distress. RESPIRATORY SYSTEM: Unlabored breathing, clear to auscultation anteriorly. HEART: S1, S2. Regular rate and rhythm. ABDOMEN: Soft, no tenderness. LABS: BUN of 11, creatinine 0.76. DIAGNOSTIC IMPRESSION AND PLAN: Patient with left lower jaw dystrophic changes suspicious for osteomyelitis. This patient did have poor dentition, post molar extraction. Patient is currently on Unasyn while waiting for Surgery evaluation. Possible deep culture. He will need a PICC line for outpatient IV antibiotic. Continue supportive care. MMODL / IJN: [id number] /
[2019-11-24 07:26] LABS: African American GFR (CKD) >90 (>60 ml/min/1.73 sqM); Anion Gap 6 mmol/L; Blood Urea Nitrogen 13 mg/dL (9-20); Calcium 8.8 mg/dL (8.4-10.2); Carbon Dioxide 30 mmol/L (22-30); Chloride 107 mmol/L (98-107); Glucose 112 mg/dL (74-99); Non-African American GFR(CKD) 90 (>60 ml/min/1.73 sqM); Potassium 3.8 mmol/L (3.5-5.1); Sodium 143 mmol/L (137-145)
[2019-11-24] MEDS: INSULIN ASPART (NovoLOG) 100 UNIT/ML VIAL SQ SCH ×4 (08:03→20:28)
[2019-11-24] MEDS: PANTOPRAZOLE 40 MG TABLET PO SCH (08:03)
[2019-11-24] MEDS: CLOPIDOGREL 75 MG TAB PO SCH (08:03)
[2019-11-24] MEDS: HEPARIN SODIUM,PORCINE 5,000 UNIT/ML 1 ML VIAL SQ SCH ×2 (08:03→20:57)
[2019-11-24] MEDS: metFORMIN 500 MG TAB PO SCH ×2 (08:03→17:48)
[2019-11-24] MEDS: MULTIVITAMINS, THERA 1 EACH TAB PO SCH (08:03)
[2019-11-24] MEDS: DEXTROSE 5% IN WATER 1,000 ML IV SCH ×2 (08:13→21:05)
[2019-11-24 11:56] LABS: Glucose,Whole Blood 87 mg/dL (75-99)
--- NOTE | 2019-11-24 15:10 | FL ---
MODIFIED SWALLOW / DEGLUTITION STUDY DATE OF EXAM: 11/24/2019 CLINICAL HISTORY: 69-year-old male Dysphagia. Patient with pontine infarct and PEG tube placement. Re assess swallow. TECHNIQUE: Deglutition study is performed utilizing honey thick liquid barium, barium thick pudding. Total fluoroscopy time: 2 minutes 11 seconds. Total images: None. Real-time fluoroscopy support was provided to speech pathology. COMPARISON: None. FINDINGS: There is impaired laryngeal closure noted with moderate to severe hypopharyngeal residuals. There is impaired posterior pharyngeal wall peristalsis. Honey thick liquid barium shows mild aspiration which is ejected with patient coughing. Puree consistency showed silent aspiration of hypopharyngeal resid uals. IMPRESSION: 1. Impaired peristalsis, impaired laryngeal closure, and moderate to severe hypopharyngeal residuals. 2. Honey thick liquid showed mild aspiration which is ejected with coughing. There is silent aspirati on with pureed consistency particularly of the hypopharyngeal residuals. Please refer to speech therapist notes for further details if necessary.
--- NOTE | 2019-11-24 15:14 | NM ---
EXAMINATION TYPE: NM bone 3 phase DATE OF EXAM: 11/24/2019 COMPARISON: NONE HISTORY: Concern for left jaw osteomyelitis. Recent tooth extraction. History of multiple myeloma. Triple phase bone scintigraphy was performed following the injection of 25.3 mCi Tc 99m MDP. Immedia te images and delayed images post injection images acquired. FINDINGS: There is very mildly asymmetric flow to the left mandible with asymmetric blood pool and fo augie abnormal uptake on delayed imaging of the left mandible. On the opposing surface of the maxilla t here is mild focal uptake. Abnormal uptake is seen within the left proximal humerus, anterior left third and fourth ribs, and mi ldly of the left L2, L3, and right L5 vertebral bodies on delayed images. Overall symmetric uptake is seen of the acromioclavicular joints, bladder, joints, sternoclavicular j oints, sacroiliac joints, hips, knees, ankles, wrists, elbows, and feet. Findings are likely degenera tive on delayed images. IMPRESSION: 1. Scintigraphic findings of osteomyelitis within the left mandible. 2. Mild increased radiotracer uptake of the opposing surface of the left maxilla. Correlate with phys ical exam. 3. Focal abnormal radiotracer uptake within the left third and fourth anterior ribs, left proximal hu merus and lumbar spine on delayed images. Correlation with radiographs is recommended. 4. Degenerative changes of the axial and appendicular skeleton on delayed images.
[2019-11-24 17:13] LABS: Glucose,Whole Blood 87 mg/dL (75-99)
[2019-11-24 20:29] LABS: Glucose,Whole Blood 85 mg/dL (75-99)
[2019-11-24] MEDS: MELATONIN 3 MG TABLET PO SCH (20:57)
[2019-11-24] MEDS: ATORVASTATIN 40 MG TAB PO SCH (20:57)
[2019-11-24] MEDS: MIRTAZAPINE 15 MG TAB PO SCH (20:57)
--- NOTE | 2019-11-24 21:06 | PN ---
PROGRESS NOTE DATE OF SERVICE: 11/24/2019 REASON FOR FOLLOWUP: Left lower jaw osteomyelitis. INTERVAL HISTORY: The patient is currently afebrile. The patient is breathing comfortably. Denies having any chest pain. No shortness of breath. No cough or pain to the lower jaw area. No drainage. No nausea, vomiting, or any diarrhea. PHYSICAL EXAMINATION: Blood pressure 141/84 with a pulse of 73, temperature is 98. He is 95% on room air. General description is an elderly male up in the bed in no distress. Skin examination to the lower jaw, currently no swelling, no redness or any drainage. Lungs: Unlabored breathing, clear to auscultation anteriorly. Heart S1, S2. Regular rate and rhythm. Abdomen soft, no tenderness. LABS: Hemoglobin is 12.1, white count 6.1, creatinine 0.83. DIAGNOSTIC IMPRESSION AND PLAN: Patient with left lower jaw destructive changes with concern for underlying osteomyelitis that has been confirmed on the bone scan as well. The patient is covered with Unasyn, to continue and monitor clinical course closely. MMODL / IJN: [id number] /
[2019-11-25] MEDS: AMPICILLIN-SULBACTAM 3 GM in SODIUM CHLORIDE 0.9% 100 ML IVPB SCH ×3 (00:54→12:05)
[2019-11-25 04:50] LABS: Basophils # (A) 0.2 k/uL (0-0.2); Basophils % (A) 3 %; Eosinophils # (A) 0.4 k/uL (0-0.7); Eosinophils % (A) 6 %; HCT 40.6 % (39.0-53.0); HGB 13.7 gm/dL (13.0-17.5); Lymphocytes # (A) 2.7 k/uL (1.0-4.8); Lymphocytes % (A) 43 %; MCH 30.4 pg (25.0-35.0); MCHC 33.8 g/dL (31.0-37.0); Mean Platelet Volume 8.1; Monocytes # (A) 0.3 k/uL (0-1.0); Monocytes % (A) 5 %; Neutrophils # (A) 2.5 k/uL (1.3-7.7); Neutrophils % (A) 41 %; Platelet Count 211 k/uL (150-450); Poikilocytosis Slight; RBC 4.51 m/uL (4.30-5.90); RDW 15.2 % (11.5-15.5); WBC 6.2 k/uL (3.8-10.6)
[2019-11-25 05:09] LABS: African American GFR (CKD) >90 (>60 ml/min/1.73 sqM); Anion Gap 6 mmol/L; Blood Urea Nitrogen 13 mg/dL (9-20); Calcium 8.6 mg/dL (8.4-10.2); Carbon Dioxide 29 mmol/L (22-30); Chloride 106 mmol/L (98-107); Glucose 110 mg/dL (74-99); Non-African American GFR(CKD) >90 (>60 ml/min/1.73 sqM); Potassium 3.7 mmol/L (3.5-5.1); Sodium 141 mmol/L (137-145)
[2019-11-25] MEDS: HYDROcodone/APAP 7.5-325MG 1 EACH TAB PO PRN ×4 (05:09→17:08)
[2019-11-25 06:53] LABS: Glucose,Whole Blood 100 mg/dL (75-99)
--- NOTE | 2019-11-25 07:56 | PN ---
PROGRESS NOTE DATE OF SERVICE: 11/24/2019 This 69-year-old gentleman was admitted with features of acute ischemic stroke involving the posterior internal cerebral artery, also had dysphagia. The patient had a PEG tube placement at this time. Patient failed video fluoroscopic swallow. The patient is confused. A bone scan also done which showed possible osteomyelitis of the left mandible, focal abnormal uptake was also noted possibly DJD. The patient has been closely monitored. PAST MEDICAL HISTORY: Reviewed. REVIEW OF SYSTEMS: Could not be taken, the patient is confused. CURRENT MEDICATIONS: Current medications are reviewed and include: 1. Tylenol p.r.n. 2. [place] 7.5. 3. Xanax. 4. Unasyn 3 grams IV q.6. 5. Plavix. 6. Heparin. 7. Melatonin. 8. Glucophage. 9. Remeron. 10.Multivitamins. 11.Narcan. 12.Protonix. PHYSICAL EXAMINATION: Patient is conscious, confused. Pulse 70, blood pressure 141/84, respirations 16, temperature 97.8, pulse ox 95% on room air. HEENT: Conjunctivae normal. NECK: No jugular venous distention. CARDIOVASCULAR: S1, S2 muffled. RESPIRATORY: Breath sounds diminished at the bases. No rhonchi, no crackles. ABDOMEN: Soft, nontender. LEGS: No edema, no swelling. NERVOUS SYSTEM: No focal deficits. LABS: CBC BMP noted. Glucose 112. ASSESSMENT: 1. Left-sided weakness with acute cerebrovascular accident. 2. Dysphagia, status post PEG tube placement. 3. Left jaw osteomyelitis. 4. History of noncompliance. 5. Lacks inability to make the patient's own decisions, cannot leave AMA. 6. History of nicotine dependence. 7. History of noncompliance. 8. Diabetes mellitus type 2. 9. Hyperlipidemia. 10.Multiple myeloma, being followed by a physician at [facility]. 11.Mild hypokalemia. 12.Elevated CRP. 13.History of chronic obstructive pulmonary disease. 14.History of atrial fibrillation. 15.History of transient ischemic attack. 16.History of nicotine dependence, continued ongoing. 17.FULL CODE. RECOMMENDATIONS AND DISCUSSION: Recommend to continue current medications, continue symptomatic treatment. Will continue with antibiotics. Otherwise, the most recent cultures are noted and closely follow with Infectious Disease and Psychiatry. PT, OT evaluation, possible ECF rehab. Guarded prognosis because of multiple complex medical issues. Further recommendations to follow. MMODL / IJN: [id number] /
[2019-11-25] MEDS: INSULIN ASPART (NovoLOG) 100 UNIT/ML VIAL SQ SCH ×2 (08:47→12:08)
[2019-11-25] MEDS: HEPARIN SODIUM,PORCINE 5,000 UNIT/ML 1 ML VIAL SQ SCH (08:52)
[2019-11-25] MEDS: metFORMIN 500 MG TAB PO SCH ×2 (08:53→17:08)
[2019-11-25] MEDS: CLOPIDOGREL 75 MG TAB PO SCH (08:53)
[2019-11-25] MEDS: PANTOPRAZOLE 40 MG TABLET PO SCH (08:53)
[2019-11-25 11:41] LABS: Glucose,Whole Blood 99 mg/dL (75-99)
[2019-11-25] MEDS: DEXTROSE 5% IN WATER 1,000 ML IV SCH (12:05)
[2019-11-25] MEDS: MULTIVITAMINS, THERA 1 EACH TAB PO SCH (12:08)
--- NOTE | 2019-11-25 13:33 | P.DS ---
Providers Date of admission: 11/19/19 15:05 Expected date of discharge: 11/25/19 Attending physician: Alessia Bruno Consults: 11/20/19 12:22 Consult Physician Routine Consulting Provider: Fam Elena Consult Reason/Comments: MM Do you want consulting provider notified?: Yes Consult Physician Urgent Consulting Provider: Lea Brown Consult Reason/Comments: OM of jaw Do you want consulting provider notified?: Yes 11/20/19 20:38 Consult Physician Routine Consulting Provider: Lea Linares Consult Reason/Comments: recent cva Do you want consulting provider notified?: Yes 11/21/19 10:55 Consult Physician Routine Consulting Provider: Rc Eugene Consult Reason/Comments: evaluate for inpatient rehab Do you want consulting provider notified?: Yes 11/21/19 12:48 Consult Physician Routine Consulting Provider: Patricia Hoyt Consult Reason/Comments: AMS Do you want consulting provider notified?: Already Contacted Primary care physician: Dayron Reilly DO Hospital Course: Final diagnosis Left-sided weakness with acute cerebrovascular accident Dysphagia, status post PEG tube placement Left jaw osteomyelitis History of noncompliance Legs inability to make patient's own decisions, cannot leave AMA Diabetes mellitus type 2 Hyperlipidemia Multiple myeloma Mild hypokalemia Elevated CRP History of chronic obstructive pulmonary disease History of atrial fibrillation History of TIA history of nicotine dependence, continued ongoing Full code Discharge disposition Patient is being discharged in a stable condition with guarded prognosis to [facility]. Patient will follow-up with oncologist Dr. Hathaway upon discharge from [facility] to discuss continuing cancer treatment options. Patient will continue on IV antibiotics in the form of Unasyn 3 g IV piggyback every 6 hours for 6 weeks. Total time taken is 35 minutes. History of present illness This is a 69-year-old male who was recently admitted for features of an acute ischemic stroke involving the posterior internal cerebral artery and was also found to have dysphagia and was being closely monitored. During hospitalization patient underwent a videofluoroscopic swallow and was found to continue have aspiration and a PEG tube was inserted and initiated tube feedings. Bone scan was also done during hospitalization showing possible osteomyelitis of the left mandible focal abnormal uptake was also noted to have possible DJD. Patient will continue on IV antibiotic therapy in the form of Unasyn for the next 6 weeks. Currently patient's condition is stable and would like to ECF today. Currently patient denies any chest pain, shortness of breath, or palpitations. Patient has been afebrile. Patient denies any nausea or vomiting and is NPO with peg tube feedings. On exam vital signs are stable. Temp is 98.2F, pulse is 71, respirations are 16, blood pressure is 131/70, oxygen saturation is 96% on room air. Cardio S1, S2 are muffled. Respiratory system shows diminished breath sounds at the bases with no crackles or rhonchi noted. Abdomen is soft and nontender. PEG tube noted. Nervous system shows no focal deficits. Please refer to medication reconciliation sheet for a list of medications. Patient Condition at Discharge: Stable Plan - Discharge Summary Discharge Rx Participant: No New Discharge Prescriptions: No Action HYDROcodone/APAP 10-325MG [[place] 10-325] 1 tab PO Q6HR PRN PRN Reason: Pain Amoxic-Pot Clav 875-125Mg [Augmentin 875-125] 1 tab PO Q12HR #14 tablet Atorvastatin [Lipitor] 40 mg PO HS #30 tablet Clopidogrel Bisulfate [Plavix] 75 mg PO DAILY #30 tab metFORMIN HCL [Glucophage] 500 mg PO BID #30 tab Hydrocodone/Acetaminophen [[place] 7.5-325] 2 tab PO Q4HR PRN PRN Reason: Pain Discharge Medication List HYDROcodone/APAP 10-325MG [[place] 10-325] 1 tab PO Q6HR PRN 11/15/19 [History] Amoxic-Pot Clav 875-125Mg [Augmentin 875-125] 1 tab PO Q12HR #14 tablet 11/18/19 [Rx] Atorvastatin [Lipitor] 40 mg PO HS #30 tablet 11/18/19 [Rx] Clopidogrel Bisulfate [Plavix] 75 mg PO DAILY #30 tab 11/18/19 [Rx] metFORMIN HCL [Glucophage] 500 mg PO BID #30 tab 11/18/19 [Rx] Hydrocodone/Acetaminophen [[place] 7.5-325] 2 tab PO Q4HR PRN 11/20/19 [History] Follow up Appointment(s)/Referral(s): Dayron Reilly, [Primary Care Provider] - 1-2 days Activity/Diet/Wound Care/Special Instructions: Patient is covered 100% for tube feedings through [facility].
[2019-11-25 15:35] VITALS: BP 163/87; PULSE 79; RESP 18; TEMP 99
--- NOTE | 2019-11-25 18:20 | PN ---
PROGRESS NOTE DATE OF SERVICE: 11/25/2019. REASON FOR FOLLOWUP: Left lower jaw osteomyelitis. INTERVAL HISTORY: The patient is currently afebrile, has been breathing comfortably. Denies having any chest pain or any cough or any worsening pain to the left lower jaw area. No nausea, vomiting, abdominal pain. No diarrhea. PHYSICAL EXAMINATION: Blood pressure 131/70 with a pulse of 71, temperature 98.2. He is 96% on room air. General description is an elderly male up in the bed in no distress. HEENT examination: No pallor or scleral icterus. LUNGS unlabored breathing. Clear to auscultation anteriorly. HEART S1, S2. Regular rate and rhythm. Abdomen soft, no tenderness. LAB: His white count is normal. Bone scan was positive. The CT was also suggestive of osteomyelitis. DIAGNOSTIC IMPRESSION AND PLAN: Patient with left lower jaw osteomyelitis. Unfortunately, cultures could not be obtained in view of inability of the oral surgeon. The patient at this time on Unasyn 3 g q.6h. Plan to continue for a total of 6 weeks with waiting monitoring CBC and BMP and sed rate with close outpatient followup. MMODL / IJN: [id number] /
== END 2019-11-25 18:38 | DRG 65 ==
LOC: EC 14:30 → 4SSUR 15:05
PROVIDERS: ADMIT Hospitalist; ATTEND Hospitalist
PROC: 02HV33Z Insertion of Infusion Device into Superior Vena Cava, Percutaneous Approach (ICD-10-PCS; principal; 2019-11-21 17:35)
DX: I63.9 Cerebral infarction, unspecified (principal); C90.00 Multiple myeloma not having achieved remission; E11.40 Type 2 diabetes mellitus with diabetic neuropathy, unspecified; E11.69 Type 2 diabetes mellitus with other specified complication; E78.5 Hyperlipidemia, unspecified; E87.6 Hypokalemia; F17.210 Nicotine dependence, cigarettes, uncomplicated; G89.29 Other chronic pain; G90.2 Horner's syndrome; I10 Essential (primary) hypertension; I48.91 Unspecified atrial fibrillation; J44.9 Chronic obstructive pulmonary disease, unspecified; M27.2 Inflammatory conditions of jaws; R79.82 Elevated C-reactive protein (CRP); R13.10 Dysphagia, unspecified; Z79.02 Long term (current) use of antithrombotics/antiplatelets; Z79.2 Long term (current) use of antibiotics; Z79.84 Long term (current) use of oral hypoglycemic drugs; Z79.899 Other long term (current) drug therapy; Z80.1 Family history of malignant neoplasm of trachea, bronchus and lung; Z80.6 Family history of leukemia; Z85.828 Personal history of other malignant neoplasm of skin; Z91.19 Patient's noncompliance with other medical treatment and regimen; Z93.1 Gastrostomy status; Z79.891 Long term (current) use of opiate analgesic; Z88.6 Allergy status to analgesic agent; Z71.6 Tobacco abuse counseling
CPT/HCPCS: 36573; 74230; 78315; 80048; 80053; 83036; 85025; 85652; 86140; 99284

== ENCOUNTER 2019-12-28 07:30 | Day surgery (SDC) | payer MEDICARE ==
[2019-12-26 15:14] VITALS: BMI 28.7
[~2019-12-28 07:30] MED LIST: LACTATED RINGERS 1,000 ML IV SCH; LIDOCAINE 1% (10MG/ML) FOR IV START INTRADERMA PRN
[2019-12-28 08:15] VITALS: TEMP 97.9
[2019-12-28 08:18] LABS: Glucose,Whole Blood 89 mg/dL (75-99)
[2019-12-28] MEDS ORDERED: LIDOCAINE 1% INJ 10MG/ML (20 ML MDV) ONE (08:27)
[2019-12-28] MEDS ORDERED: PROPOFOL 10 MG/ML 20 ML VIAL IV ONE (08:27)
--- NOTE | 2019-12-28 08:40 | P.PCN ---
Date of Procedure: 12/28/19 Procedure(s) Performed: BRIEF HISTORY: Patient is a 69-year-old, pleasant, male, recent episode of CVA and oropharyngeal dysphagia for which he underwent an EGD with PEG tube placement a few months ago. He is presently admitted large and was recovered well. His oral intake has normalized and hence dysphagia. His and scheduled for an upper endoscopy for PEG tube removal. The PEG tube was attempted to be removed in a jail was not successful.. PROCEDURE PERFORMED: Esophagogastroduodenoscopy with PEG tube removal. PREOPERATIVE DIAGNOSIS: History of CVA/dysphagia. IV sedation per anesthesia. PROCEDURE: After informed consent was obtained, the patient was brought into the endoscopy unit. IV sedation was administered by Anesthesia under continuous monitoring. Initially the Olympus GIF-140 video endoscope was inserted into the mouth. Esophagus intubated without any difficulty. It was gradually advanced into the stomach and duodenum and carefully examined. The bulb and the second part of the duodenum appeared normal. The scope at this time was withdrawn to the stomach, adequately insufflated with air, and upon careful examination, mucosa of the antrum, body, cardia and the fundus appeared normal. The internal bumper of the PEG site was visualized and appeared normal. At this time gentle traction was applied on the PEG tube and was pulled out of the anterior abdominal wall without any difficulty. Dressing was applied and the gastrostomy site. The scope was then withdrawn into the esophagus. The GE junction was located at 39 cm from the incisors. The esophagus appeared normal. There were no erosions or ulcerations seen and the patient tolerated the procedure well. IMPRESSION: 1. Successful removal of PEG tube as described above. 2. Normal-appearing esophagus stomach and duodenum. RECOMMENDATIONS: The findings of this examination were discussed with the taryn ent and well as his family. He was advised to resume his normal diet. Gastrostomy site dressings can be changed every 6 hours for 2 days. Follow up in office as needed.
[2019-12-28 08:42] VITALS: RESP 16
[2019-12-28 08:58] VITALS: BP 165/88; PULSE 71
== END 2019-12-28 09:23 | disposition home or self-care (01) ==
LOC: ORWHC2ENDO 07:30
PROVIDERS: ATTEND Internal Medicine Gastroenterology
DX: Z43.1 Encounter for attention to gastrostomy (principal); I48.91 Unspecified atrial fibrillation; I10 Essential (primary) hypertension; E78.5 Hyperlipidemia, unspecified; J44.9 Chronic obstructive pulmonary disease, unspecified; K08.89 Other specified disorders of teeth and supporting structures; Z86.73 Personal history of transient ischemic attack (TIA), and cerebral infarction without residual deficits; Z79.84 Long term (current) use of oral hypoglycemic drugs; Z79.899 Other long term (current) drug therapy; Z79.891 Long term (current) use of opiate analgesic; Z79.02 Long term (current) use of antithrombotics/antiplatelets; F17.200 Nicotine dependence, unspecified, uncomplicated; Z85.820 Personal history of malignant melanoma of skin
CPT/HCPCS: 43247; J2001; J2704; 43248

== ENCOUNTER → 2020-01-09 | Outpatient (CLI) | payer MEDICARE ==
--- NOTE | 2020-01-09 14:17 | CT ---
EXAMINATION TYPE: CT facial bones wo con DATE OF EXAM: 01/09/2020 COMPARISON: 11/18/2019 HISTORY: Osteomyelitis Unenhanced CT of the facial bones was performed in the axial and coronal planes. Bone and soft tissu e window settings are submitted. Again noted is bone destruction involving the left hemimandible compatible with osteomyelitis. There is bony fragmentation redemonstrated. Associated soft tissue swelling persists although is improved.T he temporomandibular joints are intact. Zygomatic arches appear normal. There is fairly normal aerati on of the maxillary sinuses. Frontal ethmoid and sphenoid sinuses appear normal. The maxilla is intac t. There are multiple missing teeth. I see no pathologic fluid collection. Submandibular salivary gla nds are symmetric. Parotid glands are symmetric. The globes are intact. Paranasal sinuses are well-aerated. IMPRESSION: 1. Persistent destruction of the left hemimandible anteriorly compatible with osteomyelitis. Associat ed soft tissue swelling persists although is improved.
== END | disposition home or self-care (01) ==
LOC: RADCTMAIN 13:27
PROVIDERS: ATTEND Internal Medicine
DX: M27.2 Inflammatory conditions of jaws (principal)
CPT/HCPCS: 70486